=== PATIENT | male | born 1940 | race Caucasian/White ===

== ENCOUNTER 2023-05-20 09:10 | Emergency (ER) | payer OTHER, SELFPAY ==
[2023-05-20] VITALS (17 sets, daily range): BP systolic 176–198; BP diastolic 78–111; PULSE 77–87; RESP 20–26; TEMP 36.5; O2SAT 93–94
--- NOTE | 2023-05-20 09:00 | RT.EKG_ITS ---
APPROVED REPORT Exam: Resting ECG Reason for Exam: sob Patient Location: E HR:77 bpm ECG Measurements Heart Rate 77 AXIS MS 162 P 72 QRSd 104 QRS 57 QT 416 T 70 QTc 471 Conclusion Sinus rhythm...normal P axis, V-rate 60- 99 Left ventricular hypertrophy...multiple voltage criteria Nonspecific T abnormalities, lateral leads...T <-0.10mV, I aVL V5 V6
[2023-05-20 09:34] LABS: Source Nasal/Nares
[2023-05-20 09:47] LABS: Abs Immature Grans 0.06 10^3/uL (0.0-0.06); Absolute Eosinophil Count 0.65 10^3/uL (0.0-0.7); Absolute Monocyte Count 0.69 10^3/uL (0.1-0.8); Absolute Neutrophil Count 8.24 10^3/uL (1.2-6.7); Basophils % 0.6; HCT 28.9 % (40.0-50.0); HGB 9.3 g/dL (13.5-17.5); Immature Grans % 0.6; Lymphocytes % 10.2; MCH 30.8 pg (27.0-33.0); MCHC 32.2 % (32.0-36.0); MCV 96 fL (80-95); MPV 12.2 fL (8.0-11.0); Monocytes % 6.4; Neutrophils % 76.2; Platelet Count 137 10^3/uL (130-400); RBC 3.02 10^6/uL (4.36-5.78); RDW 17.3 % (11.8-14.1); RDW-SD 60.3 fL; WBC 10.81 10^3/uL (4.4-10.8)
[2023-05-20 09:51] LABS: Absolute Basophil Count 0.06 10^3/uL (0.0-0.2)
[2023-05-20 09:57] LABS: Anion Gap 6.6 mmol/L (3-11); BUN 55 mg/dL (7-18); CO2 28.4 mmol/L (21.0-32.0); Chloride 100 mmol/L (98-107); Estimated GFR 6.47 (mL/min/1.73m2); Glucose 101 mg/dL (74-106); Potassium 4.9 mmol/L (3.5-5.1); Sodium 135 mmol/L (136-145)
[2023-05-20 09:58] LABS: CREATININE 7.8 mg/dL (0.70-1.30)
[2023-05-20 10:11] LABS: COVID-19 PCR POSITIVE (Negative)
--- NOTE | 2023-05-20 10:59 | ED.GENADUL_ITS ---
Discharge Plan Disposition Patient Disposition: Home Condition: Stable Discharge Details Clinical Impression: COVID-19 Primary Care Provider: Unknown,Unknown ED Provider: Ajay Cerna [place] Meds and New Rx's Prescriptions: New molnupiravir 200 mg capsule 800 mg PO Q12H 5 Days Qty: 40 0RF Continued allopurinol 100 mg tablet 100 mg PO DAILY aspirin [Adult Low Dose Aspirin] 81 mg tablet,delayed release (DR/EC) 81 mg PO DAILY atorvastatin 40 mg tablet 40 mg PO DAILY calcitriol 0.5 mcg capsule 0.5 mcg PO Q OTHER DAY Patient Comments: Given Saturday, Saturday, Saturday calcium carbonate 500 mg calcium (1,250 mg) tablet 500 mg PO QID clopidogrel 75 mg tablet 75 mg PO DAILY bisacodyl [Dulcolax (bisacodyl)] 10 mg suppository 10 mg TN ONCE PRN finasteride 5 mg tablet 5 mg PO DAILY ipratropium-albuterol 0.5 mg-3 mg(2.5 mg base)/3 mL solution for nebulization 3 ml inhalation Q4H PRN isosorbide mononitrate 120 mg tablet extended release 24 hr 120 mg PO DAILY metoprolol tartrate 25 mg tablet 25 mg PO BID midodrine 5 mg tablet 5 mg PO TID Patient Comments: Not taking- d/c 05/18/23 CT Rx Instructions: do not give last dose of day after 6PM or within 4 hrs of bedtime ondansetron 4 mg tablet,disintegrating 4 mg PO BID-TID PRN prednisone 20 mg tablet 20 mg PO DAILY Rx Instructions: days 11-21 of therapy pantoprazole [Protonix] 40 mg tablet,delayed release (DR/EC) 40 mg PO DAILY albuterol sulfate [Proventil HFA] 90 mcg/actuation HFA aerosol inhaler 2 inh inhalation Q4H PRN quetiapine 25 mg tablet 25 mg PO QHS sevelamer carbonate [Renvela] 2.4 gram powder in packet 2.4 g PO TID Rx Instructions: must administer with a meal/food sennosides-docusate sodium [2-in-1 Laxative] 8.6-50 mg tablet 1 tab-cap PO BID sertraline 25 mg tablet 25 mg PO DAILY tamsulosin 0.4 mg capsule 0.4 mg PO DAILY tiotropium bromide 18 mcg capsule, w/inhalation device 1 cap inhalation DAILY Rx Instructions: puncture 1 cap using device; one dose = 2 inhalations Gutierrez Ellipta 200-62.5-25 mcg blister with device 1 inh inhalation DAILY Discharge Instructions Instructions: COVID-19 (Coronavirus Disease 2019) (ED) Additional Instructions: Please follow-up with your primary care physician. Continue molnupiravir as prescribed. Please follow-up for dialysis as scheduled. Return to the ER immediately for any worsening or new concerning symptoms. Discharge Data Discharge Date/Time-TO BE ENTERED AT DEPARTURE: 05/20/23 12:33 Medical Decision Making 82-year-old male with multiple medical problems here having tested positive for COVID-19 in rehab facility. He does have cough. Patient saturating 93% off oxygen. Patient is typically on 2 L of oxygen daily. Oxygen applied and patient saturating in the upper 90s. No respiratory distress. No indication for admission. Plan to discharge with outpatient follow-up. I did speak with the pharmacist about antiviral choice and plan for Molnupiravir opposed to Paxlovid given kidney function and interaction with multiple other medications. Plan discussed with patient who is in agreement. Usual customary discharge instructions were reviewed. Lab Data Lab results reviewed: Yes I reviewed the patient's lab results. Labs: Laboratory Tests Range/Units 05/20/23 09:28 WBC (4.4-10.8) 10^3/uL 10.81 H RBC (4.36-5.78) 10^6/uL 3.02 L Hgb (13.5-17.5) g/dL 9.3 L Hct (40.0-50.0) % 28.9 L MCV (80-95) fL 96 H MCH (27.0-33.0) pg 30.8 MCHC (32.0-36.0) % 32.2 RDW (11.8-14.1) % 17.3 H Plt Count (130-400) 10^3/uL 137 MPV (8.0-11.0) fL 12.2 H Immature Gran % 0.6 Neutrophils % 76.2 Lymphocytes % 10.2 Monocytes % 6.4 Eosinophils % 6.0 Basophils % 0.6 Nucleated RBC % (0.0-0.3) % 0.0 Absolute Neutrophils (1.2-6.7) 10^3/uL 8.24 H Absolute Lymphocytes (1.2-3.4) 10^3/uL 1.10 L Absolute Monocytes (0.1-0.8) 10^3/uL 0.69 Absolute Eosinophils (0.0-0.7) 10^3/uL 0.65 Absolute Basophils (0.0-0.2) 10^3/uL 0.06 Sodium (136-145) mmol/L 135 L Potassium (3.5-5.1) mmol/L 4.9 Chloride (98-107) mmol/L 100 Carbon Dioxide (21.0-32.0) mmol/L 28.4 Anion Gap (3-11) mmol/L 6.6 BUN (7-18) mg/dL 55 H Creatinine (0.70-1.30) mg/dL 7.8 H* Est GFR (CKD-EPI 2020) (mL/min/1.73m2) 6.47 Glucose (74-106) mg/dL 101 Calcium (8.5-10.1) mg/dL 9.0 COVID-19 Source Nasal/Nares SARS-CoV-2 (PCR) (Negative) POSITIVE A* HPI General Mode of arrival: EMS . Date/Time Provider Initiated Documentation: 05/20/23 09:23 . Limitations to Documentation: no limitations . Information obtained by: patient and RN/MD . HPI Narrative: 82-year-old male with multiple medical problems here having tested positive for COVID-19 in rehab facility. Patient does note cough and some shortness of breath. He does have associated fatigue. Related Data Home Medications Medication Instructions Recorded Confirmed albuterol sulfate 90 mcg/actuation 2 inh inhalation Q4H PRN 05/20/23 05/20/23 aerosol inhaler (Proventil HFA) allopurinol 100 mg tablet 100 mg PO DAILY 05/20/23 05/20/23 aspirin 81 mg tablet,delayed 81 mg PO DAILY 05/20/23 05/20/23 release (Adult Low Dose Aspirin) atorvastatin 40 mg tablet 40 mg PO DAILY 05/20/23 05/20/23 bisacodyl 10 mg rectal suppository 10 mg TN ONCE PRN 05/20/23 05/20/23 (Dulcolax (bisacodyl)) calcitriol 0.5 mcg PO Q OTHER DAY 05/20/23 05/20/23 calcium carbonate 500 mg calcium 500 mg PO QID 05/20/23 05/20/23 (1,250 mg) tablet clopidogrel 75 mg tablet 75 mg PO DAILY 05/20/23 05/20/23 finasteride 5 mg tablet 5 mg PO DAILY 05/20/23 05/20/23 fluticasone fur. 200 mcg-umeclid 1 inh inhalation DAILY 05/20/23 05/20/23 62.5 mcg-vilant 25 mcg inhalat.powder (Trelegy Ellipta) ipratropium 0.5 mg-albuterol 3 mg 3 ml inhalation Q4H PRN 05/20/23 05/20/23 (2.5 mg base)/3 mL nebulization soln isosorbide mononitrate 120 mg 120 mg PO DAILY 05/20/23 05/20/23 tablet,extended release 24 hr metoprolol tartrate 25 mg tablet 25 mg PO BID 05/20/23 05/20/23 midodrine 5 mg tablet 5 mg PO TID 05/20/23 05/20/23 molnupiravir 200 mg capsule (EUA) 800 mg (4 x 200 mg) PO Q12H 5 days 05/20/23 #40 caps ondansetron 4 mg disintegrating 4 mg PO BID-TID PRN 05/20/23 05/20/23 tablet pantoprazole 40 mg tablet,delayed 40 mg PO DAILY 05/20/23 05/20/23 release (Protonix) prednisone 20 mg tablet 20 mg PO DAILY 05/20/23 05/20/23 quetiapine 25 mg tablet 25 mg PO QHS 05/20/23 05/20/23 sennosides 8.6 mg-docusate sodium 1 tab-cap PO BID 05/20/23 05/20/23 50 mg tablet (2-in-1 Laxative) sertraline 25 mg tablet 25 mg PO DAILY 05/20/23 05/20/23 sevelamer carbonate 2.4 gram oral 2.4 g PO TID 05/20/23 05/20/23 powder packet (Renvela) tamsulosin 0.4 mg capsule 0.4 mg PO DAILY 05/20/23 05/20/23 tiotropium bromide 18 mcg capsule 1 cap inhalation DAILY 05/20/23 05/20/23 with inhalation device Previous Rx's Medication Instructions Recorded molnupiravir 200 mg capsule (EUA) 800 mg (4 x 200 mg) PO Q12H 5 days 05/20/23 #40 caps Allergies Allergy/AdvReac Type Severity Reaction Status Date / Time heparin Allergy Unknown Unverified 05/20/23 09:33 General Stated Complaint: SOB ISIAH: 3 Review of Systems All systems reviewed & are unremarkable except as noted in HPI and below Constitutional Constitutional: Reports fatigue and Denies fever(s) Cardiovascular Cardiovascular: Denies chest pain and Reports dyspnea Respiratory Respiratory: Reports cough and Reports dyspnea Endocrine Endocrine: Reports fatigue PFSH All Active Problems COVID-19 (Acute) Social History Smoking/Tobacco Use Status: Current-Occasional Smoking risk assessment performed?: Yes Alcohol Intake: never Drug use: Never Substance use type: does not use Housing: fpc Do you feel safe at home: Yes Do you feel safe in your relationship?: Yes Exam Const General: cooperative and no acute distress HENMT Mouth: moist mucous membranes Eyes Conjunctivae: normal conjunctivae Sclera: normal sclerae Resp Auscultation: no rales and rhonchi Cardio Rate: regular rate and not tachycardic Rhythm: regular rhythm GI Palpation: soft, not firm, no guarding, no masses, not rigid and nontender Neuro General: patient alert, patient awake and tone normal Extrem General: no edema Psych Appearance: grossly normal Mental Status: mental status grossly normal Course Vital Signs Vital signs: Vital Signs Temperature 36.5 C 05/20/23 09:09 Pulse 84 05/20/23 09:09 Respiratory Rate 20 05/20/23 09:09 Blood Pressure 198/94 H 05/20/23 09:09 Pulse Oximetry 93 05/20/23 09:09 Temperature 36.5 C 05/20/23 10:44 Temperature Source Oral 05/20/23 10:44 Pulse 81 05/20/23 10:38 Pulse 82 05/20/23 10:40 Respiratory Rate 25 H 05/20/23 10:40 Respiratory Effort Short of Breath 05/20/23 09:12 Respiratory Depth Normal 05/20/23 09:12 Respiratory Pattern Normal 05/20/23 09:12 Blood Pressure 177/78 H 05/20/23 10:38 Blood Pressure Mean 112 05/20/23 10:38 Blood Pressure Position Sitting 05/20/23 09:15 Pulse Oximetry 94 05/20/23 09:15 Oxygen Delivery Method Room Air 05/20/23 09:15 Oxygen Flow Rate 0 05/20/23 09:09 Pain Level 0 05/20/23 09:15 Lab/Test Results Lab/Test Results: Laboratory Tests Range/Units 05/20/23 09:28 WBC (4.4-10.8) 10^3/uL 10.81 H RBC (4.36-5.78) 10^6/uL 3.02 L Hgb (13.5-17.5) g/dL 9.3 L Hct (40.0-50.0) % 28.9 L MCV (80-95) fL 96 H MCH (27.0-33.0) pg 30.8 MCHC (32.0-36.0) % 32.2 RDW (11.8-14.1) % 17.3 H Plt Count (130-400) 10^3/uL 137 MPV (8.0-11.0) fL 12.2 H Immature Gran % 0.6 Neutrophils % 76.2 Lymphocytes % 10.2 Monocytes % 6.4 Eosinophils % 6.0 Basophils % 0.6 Nucleated RBC % (0.0-0.3) % 0.0 Absolute Neutrophils (1.2-6.7) 10^3/uL 8.24 H Absolute Lymphocytes (1.2-3.4) 10^3/uL 1.10 L Absolute Monocytes (0.1-0.8) 10^3/uL 0.69 Absolute Eosinophils (0.0-0.7) 10^3/uL 0.65 Absolute Basophils (0.0-0.2) 10^3/uL 0.06 Sodium (136-145) mmol/L 135 L Potassium (3.5-5.1) mmol/L 4.9 Chloride (98-107) mmol/L 100 Carbon Dioxide (21.0-32.0) mmol/L 28.4 Anion Gap (3-11) mmol/L 6.6 BUN (7-18) mg/dL 55 H Creatinine (0.70-1.30) mg/dL 7.8 H* Est GFR (CKD-EPI 2021) (mL/min/1.73m2) 6.47 Glucose (74-106) mg/dL 101 Calcium (8.5-10.1) mg/dL 9.0 COVID-19 Source Nasal/Nares SARS-CoV-2 (PCR) (Negative) POSITIVE A*
--- NOTE | 2023-05-20 12:26 | NUR.NOTE ---
Nursing Note: This RN called report to [facility]. Pt stable and in no sins of distress at d/c.
== END 2023-05-20 12:33 | disposition home or self-care (01) ==
LOC: ER 14:41
PROVIDERS: Emergency Provider Student in an Organized Health Care Education/Training Program
DX: U07.1 COVID-19 (principal); Z20.822 Contact with and (suspected) exposure to COVID-19; Z99.81 Dependence on supplemental oxygen; Z79.02 Long term (current) use of antithrombotics/antiplatelets; Z79.82 Long term (current) use of aspirin; F17.210 Nicotine dependence, cigarettes, uncomplicated
CPT/HCPCS: 36415; 80048; 87635; 93005; 99283; 85025; 93010

== ENCOUNTER 2023-05-22 18:50 | Outpatient (REF) | payer OTHER, SELFPAY ==
[2023-05-22 19:04] LABS: Abs Immature Grans 0.05 10^3/uL (0.0-0.06); Absolute Basophil Count 0.03 10^3/uL (0.0-0.2); Absolute Eosinophil Count 0.01 10^3/uL (0.0-0.7); Absolute Lymphocyte Count 0.91 10^3/uL (1.2-3.4); Absolute Monocyte Count 0.41 10^3/uL (0.1-0.8); Basophils % 0.4; Eosinophils % 0.1; HCT 29.2 % (40.0-50.0); HGB 9.3 g/dL (13.5-17.5); Immature Grans % 0.7; Lymphocytes % 12.3; MCH 30.6 pg (27.0-33.0); MCHC 31.8 % (32.0-36.0); MCV 96 fL (80-95); MPV 12.4 fL (8.0-11.0); Monocytes % 5.5; Platelet Count 182 10^3/uL (130-400); RBC 3.04 10^6/uL (4.36-5.78); RDW 17.5 % (11.8-14.1); RDW-SD 60.6 fL; WBC 7.41 10^3/uL (4.4-10.8)
[2023-05-22 19:23] LABS: ALT 19 U/L (16-63); AST 21 U/L (15-37); Albumin 2.8 g/dL (3.4-5.0); Alkaline Phosphatase 63 U/L (46-116); Anion Gap 5.6 mmol/L (3-11); BUN 23 mg/dL (7-18); Bilirubin, Total 0.5 mg/dL (0.2-1.0); CO2 31.4 mmol/L (21.0-32.0); CREATININE 3.5 mg/dL (0.70-1.30); Calcium 8.4 mg/dL (8.5-10.1); Chloride 101 mmol/L (98-107); Estimated GFR 16.92 (mL/min/1.73m2); Glucose 100 mg/dL (74-106); Potassium 4.3 mmol/L (3.5-5.1); Sodium 138 mmol/L (136-145)
== END 2023-05-22 18:51 | disposition home or self-care (01) ==
LOC: LBN 18:50
PROVIDERS: Visit Provider Nurse Practitioner Adult Health
DX: A41.9 Sepsis, unspecified organism (principal); I50.43 Acute on chronic combined systolic (congestive) and diastolic (congestive) heart failure
CPT/HCPCS: 80053; 85025

== ENCOUNTER 2023-06-17 08:24 | Emergency (ER) | payer OTHER, SELFPAY ==
[2023-06-17] VITALS (40 sets, daily range): BP systolic 150–195; BP diastolic 61–110; PULSE 54–86; RESP 8–31; TEMP 36.2; O2SAT 87–100
--- NOTE | 2023-06-17 08:15 | RT.EKG_ITS ---
APPROVED REPORT Exam: Resting ECG Reason for Exam: chest pain, high b/p Patient Location: E HR:76 bpm ECG Measurements Heart Rate [address] 174 P -44 QRSd 108 QRS 23 QT 377 T 249 QTc 425 Conclusion Sinus rhythm...normal P axis, V-rate 60- 99 Ventricular premature complex...V complex w/ short R-R interval Aberrant conduction of SV complex(es)...aberrant shape, CT 80-220 Left ventricular hypertrophy...multiple voltage criteria Repol abnrm suggests ischemia, diffuse leads...ST-T neg, ant/lat/inf ECG appears to show normal sinus rhythm at a rate of 76 with normal axis and interventricular conduc tion delay. LVH based on voltage criteria in V5 and V6.
--- NOTE | 2023-06-17 08:24 | W.ED.GENAD ---
Discharge Plan Disposition Patient Disposition: Transfer-Acute Inpatient Care Specific Acute Inpt Facility: [facility] Discharge Details Clinical Impression: Acute clinical systolic heart failure Primary Care Provider: Unknown,Unknown ED Provider: Javid Desai [place] Meds and New Rx's Prescriptions: No Action allopurinol 100 mg tablet 100 mg PO DAILY aspirin [Adult Low Dose Aspirin] 81 mg tablet,delayed release (DR/EC) 81 mg PO DAILY atorvastatin 40 mg tablet 40 mg PO DAILY calcitriol 0.5 mcg capsule 0.5 mcg PO Q OTHER DAY Patient Comments: Given Saturday, Saturday, Saturday calcium carbonate 500 mg calcium (1,250 mg) tablet 500 mg PO QID clopidogrel 75 mg tablet 75 mg PO DAILY bisacodyl [Dulcolax (bisacodyl)] 10 mg suppository 10 mg TX ONCE PRN finasteride 5 mg tablet 5 mg PO DAILY ipratropium-albuterol 0.5 mg-3 mg(2.5 mg base)/3 mL solution for nebulization 3 ml inhalation Q4H PRN isosorbide mononitrate 120 mg tablet extended release 24 hr 120 mg PO DAILY metoprolol tartrate 25 mg tablet 25 mg PO BID ondansetron 4 mg tablet,disintegrating 4 mg PO BID-TID PRN prednisone 20 mg tablet 20 mg PO DAILY Rx Instructions: days 11-21 of therapy pantoprazole [Protonix] 40 mg tablet,delayed release (DR/EC) 40 mg PO DAILY albuterol sulfate [Proventil HFA] 90 mcg/actuation HFA aerosol inhaler 2 inh inhalation Q4H PRN sevelamer carbonate [Renvela] 2.4 gram powder in packet 2.4 g PO TID Rx Instructions: must administer with a meal/food sennosides-docusate sodium [2-in-1 Laxative] 8.6-50 mg tablet 1 tab-cap PO BID sertraline 25 mg tablet 25 mg PO DAILY tamsulosin 0.4 mg capsule 0.4 mg PO DAILY tiotropium bromide 18 mcg capsule, w/inhalation device 1 cap inhalation DAILY Rx Instructions: puncture 1 cap using device; one dose = 2 inhalations Trelegy Ellipta 200-62.5-25 mcg blister with device 1 inh inhalation DAILY nicotine [Nicoderm CQ] 14 mg/24 hr patch 24 hour 1 patch transdermal DAILY nitroglycerin 0.4 mg tablet, sublingual 0.4 mg sublingual Q5-15M PRN Rx Instructions: do not exceed 3 doses per episode HPI General Date/Time Provider Initiated Documentation: 06/17/23 08:37. HPI Narrative: [facility] This is a tachypneic but not tachycardic and afebrile 82-year-old male with shortness of breath concerning for possible COPD exacerbation versus acute heart failure versus volume overload from end-stage renal disease for which patient will undergo chest x-ray and bedside ultrasound. No fevers and given lack of tachycardia my suspicion was lower for sepsis so I did not order blood cultures nor a lactate. No pain out of proportion to suggest necrotizing soft tissue infection. Patient does continue to make urine but denies dysuria and frequency so I did not send a urinalysis. Pneumonia is also on the differential however given no fevers will defer empiric treatment. No hypotension no hypoxia so my suspicion is low for PE. I considered aortic dissection given history of abdominal aortic aneurysm however patient has no tearing quality aortic dissection. Patient is not hypotensive to suggest tamponade. Equal breath sounds so my suspicion is low for pneumothorax. No history of emesis to suggest infectious esophageal rupture. Right chest wall dialysis catheter with no signs of infection. 9:04 AM Limited bedside ultrasound showing bilateral B-lines with moderate squeeze concerning for the possibility of acute heart failure with reduced ejection fraction. We will wait for proBNP but in the absence of any lower extremity pitting edema and in the absence of any weight gain my suspicion is that the patient's B-lines are the results of his need for dialysis this morning rather than new onset heart failure particularly given his cough. He adds that he has recently been treated for community-acquired pneumonia. He does not appear to be on a diuretic. Nonetheless, we will trial a low-dose of furosemide at 20 mg IV. 9:08 AM Venous blood gas showing hypercarbia and acidemia with a pH of 7.23 and a PCO2 of 72 mmHg. We will contact respiratory for trial of BiPAP. Given the patient will require hospitalization will order 2 sets of blood cultures and treat empirically with ceftriaxone and vancomycin. We will also cover with methylprednisolone in the event that there is a component of COPD. 9:15 AM CBC showing leukocytosis mild macrocytic anemia improved compared to prior. Mild thrombocytopenia new compared to prior. Chest x-ray read as concerning for CHF. I considered heparinizing the patient however he reported an allergy. He reported that he could not recall what his allergy was but he reports that he needed to be revived at [facility] after receiving heparin. [facility] E[place] indicates anaphylaxis to heparin so will defer heparinization at this point time. 9:20 AM Troponin elevated at 1686 ng/L. No prior for comparison. Patient metabolic panel showing worsened renal function similar to prior. Elevated BUN. Normal potassium. proBNP elevated at 30,443 pg/mL. Normal magnesium. Will provide additional aspirin for total of 324 mg today. 9:44 AM Unfortunately both [facility] & [facility] have no capacity. Patient has received care in the past [facility]. Patient we will attempt to transfer there. 9:52 AM [facility] is unfortunately also full. We will try [facility]. Patient's COVID test has not yet resulted. He is pulling tidal volumes and 500 range. His COVID test was reportedly positive on 05/20/2023. 10:10 AM COVID influenza and RSV all negative. 10:45 AM I spoke with Dr. Sosa from the emergency department at [facility]. He agreed to accept the patient assuming that nephrology will be able to dialyze the patient today. He advised trial of nitroglycerin which I ordered orally along with additional furosemide at 60 mg as patient has not yet urinated. 11 AM I spoke with patient's daughter, Shaneka Mcgraw, to provide her with an update: [phone]. Patient has been accepted to [facility] by Dr. Sosa. 11:50 AM Repeat venous blood gas showing mildly improved acidemia with a venous pH of 7.26. Mildly improved hypercarbia with PCO2 of 64 mmHg. 12 PM Troponin improved down to 1391. Paramedics here to transport patient to [facility]. Blood pressure improved to 150/110. Patient has not yet made urine. [ ] Chronic conditions affecting the care of the patient: End-stage renal disease History obtained from an outside historian: Paramedics External record review: [facility] EMR Diagnostic interpretations performed by me: Per my independent interpretation chest x-ray shows: Increased interstitial markings bilaterally with concern for right-sided infiltrate. Per my independent interpretation EKG shows: Difficult ECG to interpret secondary to significant artifact. ECG appears to show normal sinus rhythm at a rate of 76 with normal axis and interventricular conduction delay. LVH based on voltage criteria in V5 and V6. Repeat ECG showing normal sinus rhythm at a rate of 63. Normal axis. LVH. No ST segment abnormalities. Compared to prior dated July 2022 in the [facility] system ECG feels similar. Medications: Furosemide nitroglycerin Social determinants of health affecting disposition: N/A Management discussed with: ED at [facility] Treatment/interventions considered: Heparinization but deferred given anaphylaxis Response to therapies provided: Markedly improved work of breathing on rescue BiPAP HPI This is an 82-year-old male arrived to the emergency department via paramedics in the setting of right-sided chest pain that radiates to his right with difficulty breathing. Patient is due for dialysis this morning. Patient reports that he has taken his morning home medications. He was feeling well last night. He fell several weeks ago has persistent bruising to his chest. He continues to make urine. He is not a smoker. He is on 3 L of chronic oxygen at baseline. He has had no unintentional weight gain but does endorse weight loss. 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 He has not been nauseous nor vomiting. Chart review indicates that he did receive a cardiac stent in 2007. He has not had any abdominal pain. Exam General: Chronically ill-appearing in no acute distress speaking in complete sentences. Head: Normocephalic, atraumatic. Eye: Extraocular eye movements intact. No conjunctival injection. No scleral icterus. Ear, nose, mouth, throat: Grossly normal inspection. Normal voice, handling secretions normally. Neck: Trachea midline. Cardiovascular: Well-perfused distal extremities. Systolic ejection murmur. Regular rate. Respiratory: Nonlabored respiration. Quiet tachypnea. Decreased breath sounds bibasilar reassess. Mild abdominal breathing. Gastrointestinal: Nondistended abdomen. Soft nontender. Musculoskeletal: No significant lower extremity pitting edema. Moving all 4 extremities spontaneously. Skin: Normal for age and race, grossly normal temperature and turgor. No acute rash. Neurologic: Alert and appropriate, no apparent acute deficits. Psychiatric: Mood and manner are appropriate. Grooming and personal hygiene are appropriate. Related Data Home Medications Medication Instructions Recorded Confirmed albuterol sulfate 90 mcg/actuation 2 inh inhalation Q4H PRN 05/20/23 06/17/23 aerosol inhaler (Proventil HFA) allopurinol 100 mg tablet 100 mg PO DAILY 05/20/23 06/17/23 aspirin 81 mg tablet,delayed 81 mg PO DAILY 05/20/23 06/17/23 release (Adult Low Dose Aspirin) atorvastatin 40 mg tablet 40 mg PO DAILY 05/20/23 06/17/23 bisacodyl 10 mg rectal suppository 10 mg TX ONCE PRN 05/20/23 06/17/23 (Dulcolax (bisacodyl)) calcitriol 0.5 mcg PO Q OTHER DAY 05/20/23 06/17/23 calcium carbonate 500 mg calcium 500 mg PO QID 05/20/23 06/17/23 (1,250 mg) tablet clopidogrel 75 mg tablet 75 mg PO DAILY 05/20/23 06/17/23 finasteride 5 mg tablet 5 mg PO DAILY 05/20/23 06/17/23 fluticasone fur. 200 mcg-umeclid 1 inh inhalation DAILY 05/20/23 06/17/23 62.5 mcg-vilant 25 mcg inhalat.powder (Trelegy Ellipta) ipratropium 0.5 mg-albuterol 3 mg 3 ml inhalation Q4H PRN 05/20/23 06/17/23 (2.5 mg base)/3 mL nebulization soln isosorbide mononitrate 120 mg 120 mg PO DAILY 05/20/23 06/17/23 tablet,extended release 24 hr metoprolol tartrate 25 mg tablet 25 mg PO BID 05/20/23 06/17/23 ondansetron 4 mg disintegrating 4 mg PO BID-TID PRN 05/20/23 06/17/23 tablet pantoprazole 40 mg tablet,delayed 40 mg PO DAILY 05/20/23 06/17/23 release (Protonix) prednisone 20 mg tablet 20 mg PO DAILY 05/20/23 06/17/23 sennosides 8.6 mg-docusate sodium 1 tab-cap PO BID 05/20/23 06/17/23 50 mg tablet (2-in-1 Laxative) sertraline 25 mg tablet 25 mg PO DAILY 05/20/23 06/17/23 sevelamer carbonate 2.4 gram oral 2.4 g PO TID 05/20/23 06/17/23 powder packet (Renvela) tamsulosin 0.4 mg capsule 0.4 mg PO DAILY 05/20/23 06/17/23 tiotropium bromide 18 mcg capsule 1 cap inhalation DAILY 05/20/23 06/17/23 with inhalation device nicotine 14 mg/24 hr daily 1 patch transdermal DAILY 06/17/23 06/17/23 transdermal patch (Nicoderm CQ) nitroglycerin 0.4 mg sublingual 0.4 mg sublingual Q5-15M PRN 06/17/23 06/17/23 tablet Allergies Allergy/AdvReac Type Severity Reaction Status Date / Time heparin Allergy Unknown Unverified 06/17/23 09:00 General ISIAH: 3 PFSH All Active Problems (Updated 06/17/23 @ 12:23 by Javid Desai MD) Acute clinical systolic heart failure (Acute) COVID-19 (Acute) Social History Smoking/Tobacco Use Status: Current-Occasional Smoking risk assessment performed?: Yes Alcohol Intake: never Drug use: Never Substance use type: does not use Housing: [facility] Do you feel safe at home: Yes Do you feel safe in your relationship?: Yes Additional Social history: resident at [facility] Critical Care Time Critical Care Time Critical Care Time: Yes Total Critical Care Time: 45 Attestation: Acute on chronic respiratory failure hypoxia hypercarbia POCUS Exam (ED) Limited Cardiac Exam DATE OF EXAM: 06/17/23 TIME OF EXAM: 09:03 PROVIDER THAT PERFORMED THE STUDY: Javid Desai IS THIS A REPEAT EXAM DURING THIS ENCOUNTER: no REASON FOR EXAM: Chest pain VISUALIZED STRUCTURES: Four Chambers, Left ventricle and LVOT VIEW OBTAINED: Apical 4-Chamber, Parasternal long-axis, Subxiphoid and Other (Lung windows) PERTINENT FINDINGS/IMPRESSION: LV dysfunction and Other (Moderate squeeze, aortic outflow track less than 4 cm, no significant pericardial effusion, RV less than LV. Bilateral B-lines.); No pericardial effusion INCIDENTAL FINDINGS: Moderate squeeze, aortic outflow track less than 4 cm, no significant pericardial effusion, RV less than LV. Bilateral B-lines. Did not tolerate exam
--- NOTE | 2023-06-17 08:30 | DI.RAD_ITS ---
Exam(s) XR PORTABLE CHEST AP EXAM: XR PORTABLE CHEST AP CLINICAL HISTORY: Shortness of breath TECHNIQUE: 2D digital imaging was performed. COMPARISON: No exams were available for comparison FINDINGS: LUNGS: Tiny bilateral pleural effusions. Vascular prominence and increased interstitial markings danielle aterally greater at the lung bases, consistent with CHF. No visible focal infiltrate. HEART: Normal size. AORTA: Normal calcified and ectatic. TAVR. BONES: Unremarkable for age. Soft tissues: Central venous catheter present. IMPRESSION: Findings consistent with CHF. DATA REPOSITORY: RADIATION DOSE DELIVERED:
[2023-06-17 08:50] LABS: BE (Venous) 3 mmol/L (-2-3); HCO3 (Venous) 31 mmol/L (23-28); O2 Sat (Venous) 42 %; TCO2 (Venous) 29 mmol/L (24-29); pH (Venous) 7.23 (7.31-7.41); pO2 (Venous) 29 mmHg
[2023-06-17 08:51] LABS: Abs Immature Grans 0.22 10^3/uL (0.0-0.06); Absolute Monocyte Count 0.83 10^3/uL (0.1-0.8); Basophils % 0.6; Eosinophils % 2.8; HCT 36.7 % (40.0-50.0); HGB 11.4 g/dL (13.5-17.5); Immature Grans % 1.8; Lymphocytes % 15.7; MCH 31.4 pg (27.0-33.0); MCHC 31.1 % (32.0-36.0); MCV 101 fL (80-95); MPV 10.7 fL (8.0-11.0); Monocytes % 6.7; Neutrophils % 72.4; Platelet Count 122 10^3/uL (130-400); RBC 3.63 10^6/uL (4.36-5.78); RDW 21.1 % (11.8-14.1); RDW-SD 78.4 fL; WBC 12.32 10^3/uL (4.4-10.8)
[2023-06-17 08:52] LABS: Absolute Basophil Count 0.07 10^3/uL (0.0-0.2); Absolute Eosinophil Count 0.34 10^3/uL (0.0-0.7); Absolute Lymphocyte Count 1.93 10^3/uL (1.2-3.4); Absolute Neutrophil Count 8.92 10^3/uL (1.2-6.7); pCO2 (Venous) 72 mmHg (41-51)
[2023-06-17 09:13] LABS: Anisocytosis 2+; Diff Comment Diff Reviewed
--- NOTE | 2023-06-17 09:15 | RT.EKG_ITS ---
APPROVED REPORT Exam: Resting ECG Reason for Exam: sob Patient Location: E HR:63 bpm ECG Measurements Heart Rate 63 AXIS WI 194 P 78 QRSd 111 QRS 40 QT 463 T -64 QTc 476 Conclusion Sinus rhythm...normal P axis, V-rate 60- 99 Left ventricular hypertrophy...multiple voltage criteria Abnormal T, consider ischemia, diffuse leads...T <-0.20mV, ant/lat/inf Repeat ECG showing normal sinus rhythm at a rate of 63. Normal axis. LVH. No ST segment abnormalit ies. Compared to prior dated July 2022 in the [facility] [place] ECG feels similar.
[2023-06-17 09:19] LABS: Calcium 9.2 mg/dL (8.5-10.1); Chloride 101 mmol/L (98-107); Estimated GFR 6.57 (mL/min/1.73m2); Glucose 95 mg/dL (74-106); Magnesium 2.2 mg/dL (1.8-2.4); NT-proBNP 30443 pg/mL (<300); Sodium 139 mmol/L (136-145)
[2023-06-17 09:20] LABS: BUN 110 mg/dL (7-18); CREATININE 7.7 mg/dL (0.70-1.30); Troponin I 1686 ng/L (<or=60)
[2023-06-17] MEDS: Furosemide 20 MG/2 ML VIAL IVP (09:33)
[2023-06-17] MEDS: methylPREDNISolone SUCC 125 MG VIAL IVP (09:33)
[2023-06-17] MEDS: cefTRIAXone 2 GM/50 ML BAG IVPB (09:48)
[2023-06-17 10:06] LABS: COVID-19 PCR Negative (Negative); Influenza A PCR Negative (Negative); Influenza B PCR Negative (Negative); RSV PCR Negative (Negative)
[2023-06-17 10:07] LABS: Source Nasopharynx
[2023-06-17] MEDS: VANCOMYCIN/WATER (PEG) 1.5 GM/300 ML BAG IVPB (10:21)
[2023-06-17] MEDS: Furosemide 100 MG/10 ML VIAL 60 MG IVP (11:08)
--- NOTE | 2023-06-17 11:19 | NUR.NOTE ---
Nursing Note: Pt reports he is concerned about belongings he left behind on his bed at [facility]. Requesting a call to be made to them to request smith in pants pocket that was left on his bed. Contacted the rehab, spoke with business systems advisor Dorys who states she will take care of his belongings. Pt updated on the above.
[2023-06-17] MEDS: Aspirin 81 MG CHEW 243 MG CH (11:31)
[2023-06-17 11:39] LABS: BE (Venous) 2 mmol/L (-2-3); HCO3 (Venous) 29 mmol/L (23-28); O2 Sat (Venous) 43 %; TCO2 (Venous) 28 mmol/L (24-29); pH (Venous) 7.26 (7.31-7.41); pO2 (Venous) 29 mmHg
[2023-06-17 11:41] LABS: pCO2 (Venous) 64 mmHg (41-51)
[2023-06-17 12:00] LABS: Troponin I 1391 ng/L (<or=60)
== END 2023-06-17 12:04 | disposition short-term general hospital (02) ==
LOC: ER 12:18
PROVIDERS: Emergency Provider Emergency Medicine
DX: R06.02 Shortness of breath (principal); I13.2 Hypertensive heart and chronic kidney disease with heart failure and with stage 5 chronic kidney disease, or end stage renal disease; I50.21 Acute systolic (congestive) heart failure; N18.6 End stage renal disease; R94.31 Abnormal electrocardiogram [ECG] [EKG]; D72.829 Elevated white blood cell count, unspecified; Z79.82 Long term (current) use of aspirin; Z79.01 Long term (current) use of anticoagulants
CPT/HCPCS: 36415; 80048; 82805; 87040; 87637; 93005; 96365; 96368; 96375; 96376; 99285; 71045; 83735; 83880; 84484; 85025; 93010; J1940; J1941; J2930

== ENCOUNTER 2023-09-19 17:04 | Emergency (ER) | payer OTHER, SELFPAY ==
[2023-09-19] VITALS (36 sets, daily range): BP systolic 63–176; BP diastolic 38–128; PULSE 64–205; RESP 20–35; TEMP 39; O2SAT 92–94
--- NOTE | 2023-09-19 17:00 | DI.RAD_ITS ---
Exam(s) XR PORTABLE CHEST AP EXAM: XR PORTABLE CHEST AP CLINICAL HISTORY: sob. TECHNIQUE: 2D digital imaging was performed. COMPARISON: CR XR PORTABLE CHEST AP from 06/17/2023 FINDINGS: Single AP portable view. Distal tip of the left sided double lumen catheter is in the upper right atrium. Heart size is upper normal. Aortic valve TAVR again noted. Tortuous descending thoracic aorta again noted. Mediastinum not significantly widened. Lungs are clear. No infiltrates nor obvious pleural effusions. No evidence of pulmonary edema at this time. No pneumothorax. IMPRESSION: No acute pulmonary findings on this single AP portable view of the chest. DATA REPOSITORY: RADIATION DOSE DELIVERED:
--- NOTE | 2023-09-19 17:00 | RT.EKG_ITS ---
APPROVED REPORT Exam: Resting ECG Reason for Exam: sob Patient Location: E HR:97 bpm ECG Measurements Heart Rate 97 AXIS TX [id number] P [id number] QRSd 121 QRS 8 QT 345 T 235 QTc 468 Conclusion unreadable baseline
[2023-09-19 17:27] LABS: BE (Venous) 4 mmol/L (-2-3); HCO3 (Venous) 31 mmol/L (23-28); O2 Sat (Venous) 36 %; TCO2 (Venous) 30 mmol/L (24-29); pH (Venous) 7.27 (7.31-7.41); pO2 (Venous) 25 mmHg
[2023-09-19 17:29] LABS: pCO2 (Venous) 68 mmHg (41-51)
[2023-09-19] MEDS: CEFEPIME 1 GM in Normal Saline 50 ML IVPB (17:29)
[2023-09-19 17:30] LABS: Lactate 1.1 mmol/L (0.6-1.4)
[2023-09-19 17:32] LABS: Abs Immature Grans 0.09 10^3/uL (0.0-0.06); Absolute Basophil Count 0.07 10^3/uL (0.0-0.2); Absolute Eosinophil Count 0.19 10^3/uL (0.0-0.7); Absolute Lymphocyte Count 0.65 10^3/uL (1.2-3.4); Absolute Monocyte Count 0.84 10^3/uL (0.1-0.8); Absolute Neutrophil Count 8.14 10^3/uL (1.2-6.7); Basophils % 0.7; Eosinophils % 1.9; HGB 10.4 g/dL (13.5-17.5); Immature Grans % 0.9; Lymphocytes % 6.5; MCH 31.3 pg (27.0-33.0); MCHC 30.6 % (32.0-36.0); MCV 102 fL (80-95); MPV 10.7 fL (8.0-11.0); Monocytes % 8.4; Neutrophils % 81.6; Nucleated RBC 0.3 % (0.0-0.3); Platelet Count 214 10^3/uL (130-400); RBC 3.32 10^6/uL (4.36-5.78); RDW 17.8 % (11.8-14.1); RDW-SD 66.7 fL; WBC 9.98 10^3/uL (4.4-10.8)
[2023-09-19 17:39] LABS: INR 1.1 (0.9-1.1); Prothrombin Time 11.2 sec (9.1-11.1)
[2023-09-19 17:46] LABS: ALT 12 U/L (16-63); AST 17 U/L (15-37); Albumin 3.6 g/dL (3.4-5.0); Alkaline Phosphatase 92 U/L (46-116); BUN 78 mg/dL (7-18); Bilirubin, Total 0.6 mg/dL (0.2-1.0); Calcium 9.2 mg/dL (8.5-10.1); Chloride 95 mmol/L (98-107); Estimated GFR 4.16 (mL/min/1.73m2); Glucose 98 mg/dL (74-106); Potassium 5.6 mmol/L (3.5-5.1); Sodium 134 mmol/L (136-145); Total Protein 7.1 g/dL (6.4-8.2)
[2023-09-19 17:48] LABS: CREATININE 11.2 mg/dL (0.70-1.30)
[2023-09-19] MEDS: VANCOMYCIN/WATER (PEG) 1.5 GM/300 ML BAG IV (18:03)
[2023-09-19 18:08] LABS: Procalcitonin 0.8 ng/mL
[2023-09-19] MEDS: Furosemide 100 MG/10 ML VIAL 80 MG IVP (18:17)
[2023-09-19] MEDS: Insulin REGULAR-Human 100 UNITS/ML UNIT 10 UNITS IJ (18:28)
[2023-09-19] MEDS: Dextrose 50%-Water 25 GM/50 ML SYR IVP (18:28)
[2023-09-19 18:30] LABS: NT-proBNP 24934 pg/mL (<300)
[2023-09-19] MEDS: ACETAMINOPHEN 1,000 MG/100 ML BTL 400 MG (18:49)
--- NOTE | 2023-09-19 19:09 | W.ED.GENAD ---
Discharge Plan Disposition Patient Disposition: Transfer-Acute Inpatient Care Specific Acute Inpt Facility: [facility] Condition: Critical Discharge Details Chief Complaint: GenMedical Clinical Impression: Fever, Respiratory failure, End stage renal disease on dialysis, Acute hyperkalemia Primary Care Provider: Lucho Zhu ED Provider: Ramses Martel Home Meds and New Rx's Prescriptions: No Action allopurinol 100 mg tablet 100 mg PO DAILY aspirin [Adult Low Dose Aspirin] 81 mg tablet,delayed release (DR/EC) 81 mg PO DAILY atorvastatin 40 mg tablet 40 mg PO DAILY calcitriol 0.5 mcg capsule 0.5 mcg PO Q OTHER DAY Patient Comments: Given Saturday, Saturday, Saturday calcium carbonate 500 mg calcium (1,250 mg) tablet 500 mg PO QID clopidogrel 75 mg tablet 75 mg PO DAILY bisacodyl [Dulcolax (bisacodyl)] 10 mg suppository 10 mg CA ONCE PRN finasteride 5 mg tablet 5 mg PO DAILY ipratropium-albuterol 0.5 mg-3 mg(2.5 mg base)/3 mL solution for nebulization 3 ml inhalation Q4H PRN isosorbide mononitrate 120 mg tablet extended release 24 hr 120 mg PO DAILY metoprolol tartrate 25 mg tablet 25 mg PO BID ondansetron 4 mg tablet,disintegrating 4 mg PO BID-TID PRN prednisone 20 mg tablet 20 mg PO DAILY Rx Instructions: days 11-21 of therapy pantoprazole [Protonix] 40 mg tablet,delayed release (DR/EC) 40 mg PO DAILY albuterol sulfate [Proventil HFA] 90 mcg/actuation HFA aerosol inhaler 2 inh inhalation Q4H PRN sevelamer carbonate [Renvela] 2.4 gram powder in packet 2.4 g PO TID Rx Instructions: must administer with a meal/food sennosides-docusate sodium [2-in-1 Laxative] 8.6-50 mg tablet 1 tab-cap PO BID sertraline 25 mg tablet 25 mg PO DAILY tamsulosin 0.4 mg capsule 0.4 mg PO DAILY tiotropium bromide 18 mcg capsule, w/inhalation device 1 cap inhalation DAILY Rx Instructions: puncture 1 cap using device; one dose = 2 inhalations Trelegy Ellipta 200-62.5-25 mcg blister with device 1 inh inhalation DAILY nicotine [Nicoderm CQ] 14 mg/24 hr patch 24 hour 1 patch transdermal DAILY nitroglycerin 0.4 mg tablet, sublingual 0.4 mg sublingual Q5-15M PRN Rx Instructions: do not exceed 3 doses per episode metoprolol succinate 100 mg tablet extended release 24 hr 100 mg PO DAILY acetaminophen 325 mg capsule 650 mg PO QID PRN quetiapine 25 mg tablet 25 mg PO DAILY HPI General Date/Time Provider Initiated Documentation: 09/19/23 17:09. Limitations to Documentation: altered mental status and physical limitation. Information obtained by: EMS. HPI Narrative: 83-year-old gentleman with past medical history of COPD, CAD, end-stage renal disease on dialysis presents for evaluation of fever and shortness of breath. Patient arrives via EMS from the nursing facility. History is limited. They report that he chose not to go to dialysis yesterday. It is unknown why. Today they noted that he seemed very short of breath. His oxygen levels were low. He always wears 3 L of oxygen because of his COPD. Today they noted that he also had a fever. EMS reports that his oxygen saturations were in the 80s, they put him on 6 L which improved his O2 sat. Related Data Home Medications Medication Instructions Recorded Confirmed albuterol sulfate 90 mcg/actuation 2 inh inhalation Q4H PRN 05/20/23 09/19/23 aerosol inhaler (Proventil HFA) allopurinol 100 mg tablet 100 mg PO DAILY 05/20/23 09/19/23 aspirin 81 mg tablet,delayed 81 mg PO DAILY 05/20/23 09/19/23 release (Adult Low Dose Aspirin) atorvastatin 40 mg tablet 40 mg PO DAILY 05/20/23 09/19/23 bisacodyl 10 mg rectal suppository 10 mg CA ONCE PRN 05/20/23 09/19/23 (Dulcolax (bisacodyl)) calcitriol 0.5 mcg PO Q OTHER DAY 05/20/23 09/19/23 calcium carbonate 500 mg calcium 500 mg PO QID 05/20/23 09/19/23 (1,250 mg) tablet clopidogrel 75 mg tablet 75 mg PO DAILY 05/20/23 09/19/23 finasteride 5 mg tablet 5 mg PO DAILY 05/20/23 09/19/23 fluticasone fur. 200 mcg-umeclid 1 inh inhalation DAILY 05/20/23 09/19/23 62.5 mcg-vilant 25 mcg inhalat.powder (Trelegy Ellipta) ipratropium 0.5 mg-albuterol 3 mg 3 ml inhalation Q4H PRN 05/20/23 09/19/23 (2.5 mg base)/3 mL nebulization soln isosorbide mononitrate 120 mg 120 mg PO DAILY 05/20/23 09/19/23 tablet,extended release 24 hr metoprolol tartrate 25 mg tablet 25 mg PO BID 05/20/23 09/19/23 ondansetron 4 mg disintegrating 4 mg PO BID-TID PRN 05/20/23 09/19/23 tablet pantoprazole 40 mg tablet,delayed 40 mg PO DAILY 05/20/23 09/19/23 release (Protonix) prednisone 20 mg tablet 20 mg PO DAILY 05/20/23 09/19/23 sennosides 8.6 mg-docusate sodium 1 tab-cap PO BID 05/20/23 09/19/23 50 mg tablet (2-in-1 Laxative) sertraline 25 mg tablet 25 mg PO DAILY 05/20/23 09/19/23 sevelamer carbonate 2.4 gram oral 2.4 g PO TID 05/20/23 09/19/23 powder packet (Renvela) tamsulosin 0.4 mg capsule 0.4 mg PO DAILY 05/20/23 09/19/23 tiotropium bromide 18 mcg capsule 1 cap inhalation DAILY 05/20/23 09/19/23 with inhalation device nicotine 14 mg/24 hr daily 1 patch transdermal DAILY 06/17/23 09/19/23 transdermal patch (Nicoderm CQ) nitroglycerin 0.4 mg sublingual 0.4 mg sublingual Q5-15M PRN 06/17/23 09/19/23 tablet acetaminophen 325 mg capsule 650 mg PO QID PRN 09/19/23 09/19/23 metoprolol succinate 100 mg 100 mg PO DAILY 09/19/23 09/19/23 tablet,extended release 24 hr quetiapine 25 mg tablet 25 mg PO DAILY 09/19/23 09/19/23 Allergies Allergy/AdvReac Type Severity Reaction Status Date / Time heparin Allergy Unknown Other (See Unverified 09/19/23 17:12 Comment) General Stated Complaint: GenMedical ISIAH: 2 Exam Narrative Exam Narrative: Review of Systems: All systems reviewed & are unremarkable except as noted in HPI and below Well-developed, + distress NCAT PERRL, normal conjunctiva Tachycardic Tunneled catheter in left chest Respiratory distress, tachypnea, crackles bilaterally Nondistended abdomen Left upper extremity with AV fistula with palpable thrill Extremities w/o deformity, no cyanosis, no edema No rashes or lesions. no focal neurologic deficits, answers only simple questions Appropriate mood and affect Course Vital Signs Vital signs: Vital Signs Temperature 39.0 C H 09/19/23 17:05 Pulse 102 H 09/19/23 17:05 Respiratory Rate 30 H 09/19/23 17:05 Blood Pressure 175/102 H 09/19/23 17:05 Temperature 39.0 C H 09/19/23 18:38 Temperature Source Axillary 09/19/23 18:38 Pulse 106 H 09/19/23 19:01 Pulse 86 09/19/23 19:01 Respiratory Rate 29 H 09/19/23 19:01 Respiratory Effort Short of Breath, Nasal Flaring 09/19/23 18:38 Respiratory Depth Deep 09/19/23 18:38 Respiratory Pattern Tachypnea 09/19/23 18:38 Blood Pressure 112/59 L 09/19/23 19:01 Blood Pressure Mean 76 09/19/23 19:01 Blood Pressure Position Sitting 09/19/23 18:38 Pulse Oximetry 92 09/19/23 17:16 Fraction of Inspired Oxygen (FIO2) 35 09/19/23 17:16 Lab/Test Results Lab/Test Results: 09/19/23 18:05 Blood Blood Culture - Pending 09/19/23 17:55 Blood Blood Culture - Pending Laboratory Tests Range/Units 09/19/23 09/19/23 17:18 20:00 WBC (4.4-10.8) 10^3/uL 9.98 RBC (4.36-5.78) 10^6/uL 3.32 L Hgb (13.5-17.5) g/dL 10.4 L Hct (40.0-50.0) % 34.0 L MCV (80-95) fL 102 H MCH (27.0-33.0) pg 31.3 MCHC (32.0-36.0) % 30.6 L RDW (11.8-14.1) % 17.8 H Plt Count (130-400) 10^3/uL 214 MPV (8.0-11.0) fL 10.7 Immature Gran % 0.9 Neutrophils % 81.6 Lymphocytes % 6.5 Monocytes % 8.4 Eosinophils % 1.9 Basophils % 0.7 Nucleated RBC % (0.0-0.3) % 0.3 Absolute Neutrophils (1.2-6.7) 10^3/uL 8.14 H Absolute Lymphocytes (1.2-3.4) 10^3/uL 0.65 L Absolute Monocytes (0.1-0.8) 10^3/uL 0.84 H Absolute Eosinophils (0.0-0.7) 10^3/uL 0.19 Absolute Basophils (0.0-0.2) 10^3/uL 0.07 PT (9.1-11.1) sec 11.2 H INR (0.9-1.1) 1.1 VBG pH (7.31-7.41) 7.27 L VBG pCO2 (41-51) mmHg 68 H* VBG pO2 mmHg 25 VBG HCO3 (23-28) mmol/L 31 H VBG Total CO2 (24-29) mmol/L 30 H VBG O2 Saturation % 36 VBG Base Excess (-2-3) mmol/L 4 H VBG Lactate (0.6-1.4) mmol/L 1.1 Cancelled Sodium (136-145) mmol/L 134 L Potassium (3.5-5.1) mmol/L 5.6 H Chloride (98-107) mmol/L 95 L Carbon Dioxide (21.0-32.0) mmol/L 30.0 Anion Gap (3-11) mmol/L 9.0 BUN (7-18) mg/dL 78 H Creatinine (0.70-1.30) mg/dL 11.2 H* Est GFR (CKD-EPI 2020) (mL/min/1.73m2) 4.16 Glucose (74-106) mg/dL 98 Calcium (8.5-10.1) mg/dL 9.2 Total Bilirubin (0.2-1.0) mg/dL 0.6 AST (15-37) U/L 17 ALT (16-63) U/L 12 L Alkaline Phosphatase (46-116) U/L 92 NT-Pro-B Natriuret Pep (<300) pg/mL 24826 H Total Protein (6.4-8.2) g/dL 7.1 Albumin (3.4-5.0) g/dL 3.6 Procalcitonin ng/mL 0.8 Medical Decision Making Emergent evaluation of shortness of breath and fever. Initial differential includes sepsis, volume overload, COPD exacerbation, heart failure. Patient arrived in acute respiratory distress. History is significantly limited. Patient was transition from nasal cannula to BiPAP. BiPAP was very beneficial to the patient and his respiratory status improved. Respiratory rate decreased. I suspect the symptoms today are secondary to missing his dialysis session yesterday. Chest x-ray was obtained and reviewed by me. Chest x-ray shows cardiomegaly without large focal consolidation or large pleural effusion. Lab work reviewed. No significant anemia. White blood cell count is 9. Lactic acid is not elevated. Procalcitonin is elevated. Blood cultures have been obtained. Broad-spectrum antibiotics of cefepime and vancomycin have been given. Reviewed his VBG. pH 7.27, CO2 is 68 which does appear consistent with priors. Patient is likely well compensated from a COPD standpoint. CMP is concerning for slightly elevated potassium of 5.6. BUN and creatinine elevated consistent with longstanding renal disease. Although the potassium is only 5.6, I do not know when the patient will next be able to get dialyzed, so I will shift with insulin, glucose, Lasix proBNP significantly elevated at 24,000. COVID and flu testing [facility] obtained [facility] the [facility] and these are negative absent PCR testing here to confirm. Given the critical nature of this patient and RN availability of dialysis, I have contacted [facility] for emergent transfer. I discussed with the ICU fellow, patient has been accepted for transport. Emergent transportation has been arranged. Medical Records Medical records reviewed: Yes I reviewed the patient's medical records. Lab Data Lab results reviewed: Yes I reviewed the patient's lab results. ECG Data Attestation: I personally reviewed and interpreted this ECG (s) as follows: Interpretation: EKG with out a readable rhythm Quality:SDOH Health Related Social Needs: No Data to Display Critical Care Time Critical Care Time Critical Care Time: Yes Total Critical Care Time: 35 Attestation: CRITICAL CARE Upon my evaluation, this patient had a high probability of imminent or life-threatening deterioration due to end-stage renal disease, respiratory failure, sepsis which required my direct attention, intervention, and personal management. I have personally provided 35 minutes of critical care time exclusive of time spent on separately billable procedures. Time includes review of laboratory data, radiology results, discussion with consultants, and monitoring for potential decompensation. Interventions were performed as documented above [facility] All Active Problems (Updated 09/19/23 @ 19:19 by Ramses Martel MD) Acute hyperkalemia (Acute) End stage renal disease on dialysis (Acute) Respiratory failure (Acute) Fever (Acute) COVID-19 (Acute) Social History Smoking/Tobacco Use Status: Current-Occasional Smoking risk assessment performed?: Yes Alcohol Intake: never Drug use: Never Substance use type: does not use Housing: [facility] Do you feel safe at home: Yes Do you feel safe in your relationship?: Yes Additional Social history[facility]
[2023-09-19 19:14] LABS: COVID-19 PCR Negative (Negative); Influenza A PCR Negative (Negative); Influenza B PCR Negative (Negative); RSV PCR Negative (Negative)
[2023-09-19 19:30] LABS: Source Nasopharynx
[2023-09-19] MEDS: DEXTROSE 5%-WATER 250 ML (19:56)
--- NOTE | 2023-09-23 08:22 | NUR.NOTE ---
Accessed chart to determine orders for EKG and to determine whether or not one needs to be cancelled. Duplicate order cancelled. Nursing Note:
== END 2023-09-19 20:13 | disposition short-term general hospital (02) ==
PROVIDERS: Emergency Provider Emergency Medicine; PCP Family Medicine
DX: R05.9 Cough, unspecified (principal); J96.00 Acute respiratory failure, unspecified whether with hypoxia or hypercapnia; I12.0 Hypertensive chronic kidney disease with stage 5 chronic kidney disease or end stage renal disease; N18.6 End stage renal disease; J44.9 Chronic obstructive pulmonary disease, unspecified; I25.10 Atherosclerotic heart disease of native coronary artery without angina pectoris; Z99.81 Dependence on supplemental oxygen; Z79.82 Long term (current) use of aspirin; Z79.02 Long term (current) use of antithrombotics/antiplatelets; Z99.2 Dependence on renal dialysis
CPT/HCPCS: 80053; 82805; 82962; 84145; 87040; 87637; 93005; 96374; 96375; 99285; 71045; 83605; 83880; 85025; 85610; 93010; J0131; J0692; J1815; J1940; J3372

== ENCOUNTER 2023-10-05 14:40 | Emergency (ER) | payer OTHER, SELFPAY ==
[2023-10-05 14:37] VITALS: BP 129/57; PULSE 62; RESP 18; TEMP 36.8; O2SAT 96
--- NOTE | 2023-10-05 14:45 | DI.CT_ITS ---
Exam(s) CT HEAD CERVICAL SPINE WO EXAM: CT HEAD CERVICAL SPINE WO CLINICAL HISTORY: fall. TECHNIQUE: Imaging Protocol: Axial computed tomography images with coronal and sagittal reformatted images were created and reviewed COMPARISON: No exams were available for comparison FINDINGS: CT Head: Ventricles and Extra axial spaces: Normal in size and morphology for the patient's age. Hemorrhage: None. Cerebral parenchyma: There are areas of decreased attenuation in the white matter most consistent wit h chronic microvascular ischemic disease. 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 No acute mass effect or evidence of an acute territorial infarct are seen. Midline shift: None. Brainstem/Cerebellum: Normal. Calvarium: Normal. Visualized Paranasal sinuses/Mastoids: There are small air-fluid levels in the maxillary sinuses bila terally. There is also opacification of the mastoid air cells bilaterally. Soft Tissues: Unremarkable. CT Cervical Spine: Bones: No acute fracture or subluxation. Age-appropriate degenerative changes are seen in the cervica l spine. Soft Tissues: Atherosclerotic calcification is seen in the carotid arteries. Lung Apices: Clear. IMPRESSION: 1. No acute intracranial process. 2. Mastoiditis and maxillary sinusitis. 3. No acute fracture or subluxation in the cervical spine. RADIATION DOSE DELIVERED: Total DLP DATA REPOSITORY: All CT scans at this facility are submitted to the National Radiology Data Registry (NRDR) Dose Index Registry (DIR) with the [employer] ([employer]). RADIATION OPTIMIZATION: All CT scans at this facility use at least one of these dose optimization te chniques: automated exposure control; mA and/or kV adjustment per patient size (includes targeted exa ms where dose is matched to clinical indication); or iterative reconstruction.
--- NOTE | 2023-10-05 14:49 | DI.RAD_ITS ---
Exam(s) XR FOREARM LT EXAM: XR FOREARM LT CLINICAL HISTORY: fall trauma. TECHNIQUE: 2D digital imaging was performed of the left forearm. Two views were obtained. AP and l ateral views were obtained. COMPARISON: No exams were available for comparison FINDINGS: BONES: No acute fracture is present. No bony destructive lesion is seen. Visualized portion of elbow and wrist joints are unremarkable. SOFT TISSUE: Vascular calcifications are present. IMPRESSION: No acute fracture or dislocation. DATA REPOSITORY: RADIATION DOSE DELIVERED:
--- NOTE | 2023-10-05 14:49 | DI.RAD_ITS ---
Exam(s) XR FOREARM RT EXAM: XR FOREARM RT CLINICAL HISTORY: fall trauma. TECHNIQUE: 2D digital imaging was performed of the left forearm. Two views were obtained. AP and l ateral views were obtained. COMPARISON: There are no priors for comparison. FINDINGS: BONES: No acute fracture is present. No bony destructive lesion is seen. Visualized portion of elbow and wrist joints are unremarkable. SOFT TISSUE: Vascular calcifications are present. IMPRESSION: No acute fracture or dislocation. DATA REPOSITORY: RADIATION DOSE DELIVERED:
--- NOTE | 2023-10-05 14:51 | ED.GENADUL_ITS ---
Discharge Plan Disposition Patient Disposition: [facility] Condition: Stable Discharge Details Clinical Impression: Multiple skin tears, Fall Primary Care Provider: Lucho Zhu ED Provider: Becca Lazo [place] Meds and New Rx's Prescriptions: Continued allopurinol 100 mg tablet 100 mg PO DAILY aspirin [Adult Low Dose Aspirin] 81 mg tablet,delayed release (DR/EC) 81 mg PO DAILY atorvastatin 40 mg tablet 40 mg PO DAILY calcitriol 0.5 mcg capsule 0.5 mcg PO Q OTHER DAY Patient Comments: Given Saturday, Saturday, Saturday calcium carbonate 500 mg calcium (1,250 mg) tablet 500 mg PO QID clopidogrel 75 mg tablet 75 mg PO DAILY bisacodyl [Dulcolax (bisacodyl)] 10 mg suppository 10 mg ND ONCE PRN finasteride 5 mg tablet 5 mg PO DAILY ipratropium-albuterol 0.5 mg-3 mg(2.5 mg base)/3 mL solution for nebulization 3 ml inhalation Q4H PRN isosorbide mononitrate 120 mg tablet extended release 24 hr 120 mg PO DAILY metoprolol tartrate 25 mg tablet 25 mg PO BID ondansetron 4 mg tablet,disintegrating 4 mg PO BID-TID PRN prednisone 20 mg tablet 20 mg PO DAILY Rx Instructions: days 11-21 of therapy pantoprazole [Protonix] 40 mg tablet,delayed release (DR/EC) 40 mg PO DAILY albuterol sulfate [Proventil HFA] 90 mcg/actuation HFA aerosol inhaler 2 inh inhalation Q4H PRN sevelamer carbonate [Renvela] 2.4 gram powder in packet 2.4 g PO TID Rx Instructions: must administer with a meal/food sennosides-docusate sodium [2-in-1 Laxative] 8.6-50 mg tablet 1 tab-cap PO BID sertraline 25 mg tablet 25 mg PO DAILY tamsulosin 0.4 mg capsule 0.4 mg PO DAILY tiotropium bromide 18 mcg capsule, w/inhalation device 1 cap inhalation DAILY Rx Instructions: puncture 1 cap using device; one dose = 2 inhalations Trelegy Ellipta 200-62.5-25 mcg blister with device 1 inh inhalation DAILY nicotine [Nicoderm CQ] 14 mg/24 hr patch 24 hour 1 patch transdermal DAILY nitroglycerin 0.4 mg tablet, sublingual 0.4 mg sublingual Q5-15M PRN Rx Instructions: do not exceed 3 doses per episode metoprolol succinate 100 mg tablet extended release 24 hr 100 mg PO DAILY acetaminophen 325 mg capsule 650 mg PO QID PRN quetiapine 25 mg tablet 25 mg PO DAILY Discharge Instructions Instructions: Fall Prevention for Older Adults (ED), Skin Tear (ED) Additional Instructions: Keep clean and dry. Change dressing daily. No evidence of intracranial bleeding or abnormality, no broken bones. Follow up with primary care provider in 3-5 days. Return to ED sooner if any worsening or concerns. Increase oral fluids. Please take Tylenol with food every 4-6 hours as needed for pain and swelling. Referrals: Lucho Zhu [Primary Care Provider] - 3 days Discharge Data Discharge Date/Time-TO BE ENTERED AT DEPARTURE: 10/05/23 16:55 HPI <Mandeep Zamora NP - Last Filed: 10/06/23 08:30> General Mode of arrival: EMS . Date/Time Provider Initiated Documentation: 10/05/23 14:43 . Information obtained by: patient and RN notes reviewed . History of Present Illness 83 year old M presents to the emergency department with the chief complaint of fall-bilateral arm pain and wounds, described as moderate, Patient started experiencing this hour(s) (1) and it has been constant. Patient notes no other symptoms.. Related Data Home Medications Medication Instructions Recorded Confirmed albuterol sulfate 90 mcg/actuation 2 inh inhalation Q4H PRN 05/20/23 09/19/23 aerosol inhaler (Proventil HFA) allopurinol 100 mg tablet 100 mg PO DAILY 05/20/23 09/19/23 aspirin 81 mg tablet,delayed 81 mg PO DAILY 05/20/23 09/19/23 release (Adult Low Dose Aspirin) atorvastatin 40 mg tablet 40 mg PO DAILY 05/20/23 09/19/23 bisacodyl 10 mg rectal suppository 10 mg ND ONCE PRN 05/20/23 09/19/23 (Dulcolax (bisacodyl)) calcitriol 0.5 mcg PO Q OTHER DAY 05/20/23 09/19/23 calcium carbonate 500 mg calcium 500 mg PO QID 05/20/23 09/19/23 (1,250 mg) tablet clopidogrel 75 mg tablet 75 mg PO DAILY 05/20/23 09/19/23 finasteride 5 mg tablet 5 mg PO DAILY 05/20/23 09/19/23 fluticasone fur. 200 mcg-umeclid 1 inh inhalation DAILY 05/20/23 09/19/23 62.5 mcg-vilant 25 mcg inhalat.powder (Trelegy Ellipta) ipratropium 0.5 mg-albuterol 3 mg 3 ml inhalation Q4H PRN 05/20/23 09/19/23 (2.5 mg base)/3 mL nebulization soln isosorbide mononitrate 120 mg 120 mg PO DAILY 05/20/23 09/19/23 tablet,extended release 24 hr metoprolol tartrate 25 mg tablet 25 mg PO BID 05/20/23 09/19/23 ondansetron 4 mg disintegrating 4 mg PO BID-TID PRN 05/20/23 09/19/23 tablet pantoprazole 40 mg tablet,delayed 40 mg PO DAILY 05/20/23 09/19/23 release (Protonix) prednisone 20 mg tablet 20 mg PO DAILY 05/20/23 09/19/23 sennosides 8.6 mg-docusate sodium 1 tab-cap PO BID 05/20/23 09/19/23 50 mg tablet (2-in-1 Laxative) sertraline 25 mg tablet 25 mg PO DAILY 05/20/23 09/19/23 sevelamer carbonate 2.4 gram oral 2.4 g PO TID 05/20/23 09/19/23 powder packet (Renvela) tamsulosin 0.4 mg capsule 0.4 mg PO DAILY 05/20/23 09/19/23 tiotropium bromide 18 mcg capsule 1 cap inhalation DAILY 05/20/23 09/19/23 with inhalation device nicotine 14 mg/24 hr daily 1 patch transdermal DAILY 06/17/23 09/19/23 transdermal patch (Nicoderm CQ) nitroglycerin 0.4 mg sublingual 0.4 mg sublingual Q5-15M PRN 06/17/23 09/19/23 tablet acetaminophen 325 mg capsule 650 mg PO QID PRN 09/19/23 09/19/23 metoprolol succinate 100 mg 100 mg PO DAILY 09/19/23 09/19/23 tablet,extended release 24 hr quetiapine 25 mg tablet 25 mg PO DAILY 09/19/23 09/19/23 Allergies Allergy/AdvReac Type Severity Reaction Status Date / Time heparin Allergy Unknown Other (See Unverified 09/19/23 17:12 Comment) General Stated Complaint: Fall/Non TraumaCriteria ISIAH: 4 Review of Systems <Mandeep Zamora NP - Last Filed: 10/06/23 08:30> Constitutional Constitutional: Denies headache(s) Eyes Eyes: Denies change in vision ENT Ears, Nose, Mouth, and Throat: Denies headache(s) and Denies neck pain Cardiovascular Cardiovascular: Denies chest pain, Denies syncope, Denies lightheadedness and Denies dyspnea Respiratory Respiratory: Denies dyspnea Gastrointestinal Gastrointestinal: Denies abdominal pain Musculoskeletal Musculoskeletal: Reports as per HPI and Denies neck pain Integumentary/Breasts Skin/Breast: Reports as per HPI and Reports wounds Neurologic Neurologic: Denies syncope, Denies headache(s) and Denies paresthesias Exam <Mandeep Zamora NP - Last Filed: 10/06/23 08:30> Extrem Right upper extremity: elbow/forearm Details: tenderness Location: proximal forearm, ecchymosis proximal Details: multiple and distal pulses intact and wrist Details: tenderness Location: of the distal radius and of the distal ulna, laceration (Multiple skin tears), ecchymosis distal Details: multiple and normal vascular exam Left upper extremity: elbow/forearm Details: tenderness and wrist Details: tenderness, laceration (Multiple skin tears), ecchymosis and normal vascular exam Course <PREETI Hebert Last Filed: 10/06/23 08:30> Vital Signs Vital signs: Vital Signs Temperature 36.8 C 10/05/23 14:37 Pulse 62 10/05/23 14:37 Respiratory Rate 18 10/05/23 14:37 Blood Pressure 129/57 L 10/05/23 14:37 Pulse Oximetry 96 10/05/23 14:37 Temperature 36.8 C 10/05/23 14:37 Temperature Source Temporal Artery Scan 10/05/23 14:37 Pulse 62 10/05/23 14:37 Respiratory Rate 18 10/05/23 14:37 Respiratory Effort Normal, Non-Labored 10/05/23 14:45 Blood Pressure 129/57 L 10/05/23 14:37 Blood Pressure Position Supine 10/05/23 14:37 Pulse Oximetry 96 10/05/23 14:37 Oxygen Delivery Method Room Air 10/05/23 14:37 Oxygen Flow Rate 0 10/05/23 14:37 Medical Decision Making <Mandeep Zamora NP - Last Filed: 10/06/23 08:30> Patient presenting to the emergency department via EMS for fall out of bed at nursing facility. Patient reports mechanical fall, denies any medical complaints preceding event. Patient reports that he did hit his head but no loss of consciousness, denies headache vision change or neurological symptoms. Patient mostly complains of bilateral arm pain mainly in the forearms along with multiple skin tears. Patient has ESRD, CAD, physical exam shows no gross neurodeficit, shows multiple skin tears and ecchymosis to bilateral forearms, clear lung sounds, normal cardiac exam, no reproducible or palpable chest pain tenderness, no hip tenderness, stable pelvis, bilateral forearm tenderness extending from the elbows down to the wrist without focal tenderness. Pulses are intact, sensation intact and gross movement intact. Given the patient states that he hit his head and is on aspirin and clopidogrel will perform CT imaging of head and neck, will perform plain film imaging of bilateral forearms but I suspect most discomfort is secondary to ecchymosis and soft tissue injury. Will perform acute wound care on skin tears. Quality:[facility] Health Related Social Needs: No Data to Display <Becca Lazo NP - Last Filed: 10/05/23 17:39> Patient presenting to the emergency department via EMS for fall out of bed at nursing facility. Patient reports mechanical fall, denies any medical complaints preceding event. Patient reports that he did hit his head but no loss of consciousness, denies headache vision change or neurological symptoms. Patient mostly complains of bilateral arm pain mainly in the forearms along with multiple skin tears. Patient has ESRD, CAD, physical exam shows no gross neurodeficit, shows multiple skin tears and ecchymosis to bilateral forearms, clear lung sounds, normal cardiac exam, no reproducible or palpable chest pain tenderness, no hip tenderness, stable pelvis, bilateral forearm tenderness extending from the elbows down to the wrist without focal tenderness. Pulses are intact, sensation intact and gross movement intact. Given the patient states that he hit his head and is on aspirin and clopidogrel will perform CT imaging of head and neck, will perform plain film imaging of bilateral forearms but I : suspect most discomfort is secondary to ecchymosis and soft tissue injury. Will perform acute wound care on skin tears. 1548: SJ: Care assumed from provider (Arpit Zamora NP) Please see their initial HPI, PE, and documentation. Discussed patient details and case and pending workup and disposition. Patient is hemodynamically stable, and alert and oriented. At the time of signout awaiting road test, imaging results and wound care. CT WNL, no evidence of acute intracranial abnormality. Wound care performed x- rays of forearms are negative for acute fracture. Patient to be transferred [facility]. Family informed of plan of care. Patient remained hemodynamically stable alert and oriented throughout the remainder of his stay. This text was generated using [employer] dictation system, please disregard any oddities of phrase or misspellings. Imaging Data Radiologic Study: Imaging: CT Scan Radiologist's impression: TECHNIQUE: Imaging protocol: Computed tomography of the head without contrast. Radiation optimization: All CT scans at this facility use at least one of these dose optimization techniques: automated exposure control; mA and/or kV adjustment per patient size (includes targeted exams where dose is matched to clinical indication); or iterative reconstruction. COMPARISON: No relevant prior studies available. FINDINGS: Brain: Cerebral volume loss noted. Scattered areas of decreased attenuation in the deep periventricular white matter consistent with small vessel ischemic change. No evidence for acute intracranial hemorrhage. Cerebral ventricles: No ventriculomegaly. Paranasal sinuses: There are small air-fluid levels in the maxillary sinuses bilaterally. Mastoid air cells: There is opacification of the mastoid air cells bilaterally. Bones/joints: Unremarkable. No acute fracture. Soft tissues: Unremarkable. IMPRESSION: 1. Senescent changes noted. No acute intracranial abnormality. 2. Inflammatory changes noted in the mastoid air cells bilaterally. Exam: CT Cervical Spine Without Contrast Exam date and time: 10/05/2023 3:07 PM Age: 83 years old Clinical indication: Other: Fall TECHNIQUE: Imaging protocol: Computed tomography of the cervical spine without contrast. Radiation optimiza tion: All CT scans at this facility use at least one of these dose optimization techniques: automated exposure control; mA and/or kV adjustment per patient size (includes targeted exams where dose is matched to clinical indication); or iterative reconstruction. COMPARISON: CR XR PORTABLE CHEST AP 09/19/2023 6:00 PM FINDINGS: Tubes, catheters and devices: Left-sided double-lumen catheter noted. Bones/joints: There is some straightening of the normal cervical lordosis, nonspecific but commonly seen with underlying muscle spasm. Vertebral body height is well preserved. There is no evidence for fracture. There is multilevel spondylosis with mild upper cervical stenosis C3-C4. Mastoid air cells: Bilateral mastoid air cell opacification. Lungs: Lung apices are normal. Vasculature: There is significant calcification present in the carotid arteries bilaterally. Soft tissues: See Bones/joints finding. IMPRESSION: Spondylosis with mild upper cervical stenosis. No evidence for fracture. PFSH <Mandeep Zamora NP - Last Filed: 10/06/23 08:30> All Active Problems (Updated 10/05/23 @ 16:28 by Becca Lazo NP) Fall (Acute) Multiple skin tears (Acute) Acute hyperkalemia (Acute) End stage renal disease on dialysis (Acute) Respiratory failure (Acute) Fever (Acute) COVID-19 (Acute) Social History Smoking/Tobacco Use Status: Current-Occasional Smoking risk assessment performed?: Yes Alcohol Intake: never Drug use: Never Substance use type: does not use Housing: [facility] Do you feel safe at home: Yes Do you feel safe in your relationship?: Yes Additional Social history: resident at [facility] Sign Out <Mandeep Zamora NP - Last Filed: 10/06/23 08:30> Sign Out Data: Sign Out Comment: Patient signed out pending radiology interpretation of imaging and disposition. Last updated by Mandeep Zamora NP at 10/05/23 15:28
--- NOTE | 2023-10-05 15:42 | DI.VRAD_ITS ---
PROCEDURE INFORMATION: Exam: CT Head Without Contrast Exam date and time: 10/05/2023 3:07 PM Age: 83 years old Clinical indication: Other: Fall TECHNIQUE: Imaging protocol: Computed tomography of the head without contrast. Radiation optimization: All CT scans at this facility use at least one of these dose optimization techniques: automated exposure control; mA and/or kV adjustment per patient size (includes targeted exams where dose is matched to clinical indication); or iterative reconstruction. COMPARISON: No relevant prior studies available. FINDINGS: Brain: Cerebral volume loss noted. Scattered areas of decreased attenuation in the deep periventricular white matter consistent with small vessel ischemic change. No evidence for acute intracranial hemorrhage. Cerebral ventricles: No ventriculomegaly. Paranasal sinuses: There are small air-fluid levels in the maxillary sinuses bilaterally. Mastoid air cells: There is opacification of the mastoid air cells bilaterally. Bones/joints: Unremarkable. No acute fracture. Soft tissues: Unremarkable. IMPRESSION: 1. Senescent changes noted. No acute intracranial abnormality. 2. Inflammatory changes noted in the mastoid air cells bilaterally. PROCEDURE INFORMATION: Exam: CT Cervical Spine Without Contrast Exam date and time: 10/05/2023 3:07 PM Age: 83 years old Clinical indication: Other: Fall TECHNIQUE: Imaging protocol: Computed tomography of the cervical spine without contrast. Radiation optimization: All CT scans at this facility use at least one of these dose optimization techniques: automated exposure control; mA and/or kV adjustment per patient size (includes targeted exams where dose is matched to clinical indication); or iterative reconstruction. COMPARISON: CR XR PORTABLE CHEST AP 09/19/2023 6:00 PM FINDINGS: Tubes, catheters and devices: Left-sided double-lumen catheter noted. Bones/joints: There is some straightening of the normal cervical lordosis, nonspecific but commonly seen with underlying muscle spasm. Vertebral body height is well preserved. There is no evidence for fracture. There is multilevel spondylosis with mild upper cervical stenosis C3-C4. Mastoid air cells: Bilateral mastoid air cell opacification. Lungs: Lung apices are normal. Vasculature: There is significant calcification present in the carotid arteries bilaterally. Soft tissues: See Bones/joints finding. IMPRESSION: Spondylosis with mild upper cervical stenosis. No evidence for fracture. Dictated and Authenticated by: Barbi Kamara MD. Ordering:DANDRE Kaufman MD
[2023-10-05] MEDS: Lidocaine/Epinephri/Tetracaine Topical Gel 3 ML ×2 (15:50)
--- NOTE | 2023-10-05 16:16 | DI.VRAD_ITS ---
PROCEDURE INFORMATION: Exam: XR Left Forearm Exam date and time: 10/05/2023 3:24 PM Age: 83 years old Clinical indication: Pain; Lower or forearm; Left; Patient HX: Fall, trauma TECHNIQUE: Imaging protocol: Radiologic exam of the left forearm. Views: 2 views. COMPARISON: No relevant prior studies available. FINDINGS: Bones/joints: Normal. Soft tissues: Normal. IMPRESSION: No acute findings. Dictated and Authenticated by: Srikanth Hodges MD. Ordering:DANDRE Kaufman MD
--- NOTE | 2023-10-05 16:16 | DI.VRAD_ITS ---
PROCEDURE INFORMATION: Exam: XR Right Forearm Exam date and time: 10/05/2023 3:29 PM Age: 83 years old Clinical indication: Pain; Lower or forearm; Right; Patient HX: Fall, trauma TECHNIQUE: Imaging protocol: Radiologic exam of the right forearm. Views: 2 views. COMPARISON: No relevant prior studies available. FINDINGS: Bones/joints: Normal. Soft tissues: Normal. IMPRESSION: No acute findings. Dictated and Authenticated by: Srikanth Hodges MD. Ordering:DANDRE Kaufman MD
== END 2023-10-05 16:55 | disposition skilled nursing facility (03) ==
PROVIDERS: Emergency Provider Registered Nurse Emergency; PCP Family Medicine
DX: S51.812A Laceration without foreign body of left forearm, initial encounter (principal); S51.811A Laceration without foreign body of right forearm, initial encounter; I25.10 Atherosclerotic heart disease of native coronary artery without angina pectoris; I12.0 Hypertensive chronic kidney disease with stage 5 chronic kidney disease or end stage renal disease; N18.6 End stage renal disease; F17.200 Nicotine dependence, unspecified, uncomplicated; Z79.82 Long term (current) use of aspirin; Z79.01 Long term (current) use of anticoagulants; Z99.2 Dependence on renal dialysis; W06.XXXA Fall from bed, initial encounter; Y93.89 Activity, other specified; Y92.092 Bedroom in other non-institutional residence as the place of occurrence of the external cause
CPT/HCPCS: 99284; 70450; 72125; 73090

== ENCOUNTER 2023-10-28 21:16 | Outpatient (REF) | payer OTHER, SELFPAY ==
[2023-10-28 21:56] LABS: Bilirubin Negative (Negative); Blood Small (Negative); Clarity Clear (Clear); Glucose Negative (Negative); Ketones Negative (Negative); Leukocyte Esterase Small (Negative); Nitrite Negative (Negative); Urobilinogen 0.2 mg/dL (Up to 0.2)
[2023-10-28 22:07] LABS: Bacteria Negative HPF (Negative); C & S Indicated? C&S Done As Ordered; Casts 0-2 Hyaline LPF (Negative); Crystals Negative HPF (Negative); Epithelial Cells Rare HPF (Negative); Mucus Trace (Negative)
== END 2023-10-28 21:17 | disposition home or self-care (01) ==
LOC: LBN 21:16
PROVIDERS: PCP Family Medicine; Visit Provider Family Medicine
DX: N39.0 Urinary tract infection, site not specified (principal)
CPT/HCPCS: 81003; 81015; 87086

== ENCOUNTER 2024-01-18 15:00 | Outpatient (REF) | payer OTHER, SELFPAY ==
[2024-01-18 15:18] LABS: Abs Immature Grans 0.04 10^3/uL (0.0-0.06); Absolute Basophil Count 0.08 10^3/uL (0.0-0.2); Absolute Eosinophil Count 0.51 10^3/uL (0.0-0.7); Absolute Lymphocyte Count 1.07 10^3/uL (1.2-3.4); Absolute Monocyte Count 1.04 10^3/uL (0.1-0.8); Absolute Neutrophil Count 6.04 10^3/uL (1.2-6.7); Basophils % 0.9 %; Eosinophils % 5.8 %; HCT 35.8 % (40.0-50.0); Immature Grans % 0.5 %; Lymphocytes % 12.2 %; MCH 30.3 pg (27.0-33.0); MCHC 30.7 % (32.0-36.0); MCV 99 fL (80-95); Monocytes % 11.8 %; Neutrophils % 68.8 %; Platelet Count 165 10^3/uL (130-400); RBC 3.63 10^6/uL (4.36-5.78); RDW 15.7 % (11.8-14.1); RDW-SD 57.4 fL; WBC 8.78 10^3/uL (4.4-10.8)
[2024-01-18 15:21] LABS: AST 9 U/L (15-37); Alkaline Phosphatase 117 U/L (46-116); Anion Gap 7.7 mmol/L (3-11); BUN 23 mg/dL (7-18); Bilirubin, Total 0.42 mg/dL (0.2-1.0); CO2 34.3 mmol/L (21.0-32.0); Calcium 9.1 mg/dL (8.5-10.1); Chloride 98 mmol/L (98-107); Estimated GFR 11.81 (mL/min/1.73m2); Glucose 147 mg/dL (74-106); Potassium 3.3 mmol/L (3.5-5.1); Sodium 140 mmol/L (136-145); Total Protein 6.8 g/dL (6.4-8.2)
[2024-01-18 17:27] LABS: ALT < 6 U/L (16-63); CREATININE 4.7 mg/dL (0.70-1.30)
[2024-01-18 17:29] LABS: Lactate 2.8 mmol/L (0.6-1.4)
== END 2024-01-18 15:01 | disposition home or self-care (01) ==
LOC: LBN 15:00
PROVIDERS: PCP Family Medicine; Visit Provider Family Medicine
DX: J18.9 Pneumonia, unspecified organism (principal)
CPT/HCPCS: 80053; 87637; 83605; 85025

== ENCOUNTER 2024-01-18 20:50 | Emergency (ER) | payer OTHER, MEDICARE, SELFPAY ==
[2024-01-18] VITALS (50 sets, daily range): BP systolic 40–207; BP diastolic 20–78; PULSE 62–204; RESP 18–37; TEMP 37.4–39.4; O2SAT 89–99
--- NOTE | 2024-01-18 20:30 | RT.EKG_ITS ---
APPROVED REPORT Exam: Resting ECG Reason for Exam: SOB Patient Location: E HR:124 bpm ECG Measurements Heart Rate 124 AXIS OR 158 P 132 QRSd 122 QRS 16 QT 316 T 224 QTc 454 Conclusion Sinus tachycardia...rate> 99 IVCD, consider LBBB...QRSd>120, notch/slur R I aVL V5-6 Physician: no stemi, negative sgarbossa
[2024-01-18 21:11] LABS: Lactate 1.7 mmol/L (0.6-1.4)
[2024-01-18] MEDS: ACETAMINOPHEN 1,000 MG/100 ML BTL 400 MG IVPB (21:17)
[2024-01-18 21:21] LABS: BE (Venous) 8 mmol/L (-2-3); HCO3 (Venous) 33 mmol/L (23-28); O2 Sat (Venous) 51 %; TCO2 (Venous) 31 mmol/L (24-29); pCO2 (Venous) 59 mmHg (41-51); pH (Venous) 7.37 (7.31-7.41); pO2 (Venous) 28 mmHg
--- NOTE | 2024-01-18 21:24 | ED.GENADUL_ITS ---
Discharge Plan Disposition Patient Disposition: Transfer-Acute Inpatient Care Specific Acute Inpt Facility: [facility] [place] Condition: Critical Discharge Details Chief Complaint: SOB Clinical Impression: Septic shock, Renal failure, Encephalopathy due to infection, Pneumonia Primary Care Provider: Lucho Zhu ED Provider: Yevgeniy Connors Home Meds and New Rx's Prescriptions: No Action allopurinol 100 mg tablet 100 mg PO DAILY aspirin [Adult Low Dose Aspirin] 81 mg tablet,delayed release (DR/EC) 81 mg PO DAILY atorvastatin 40 mg tablet 40 mg PO DAILY calcitriol 0.5 mcg capsule 0.5 mcg PO Q OTHER DAY Patient Comments: Given Saturday, Saturday, Saturday calcium carbonate 500 mg calcium (1,250 mg) tablet 500 mg PO QID clopidogrel 75 mg tablet 75 mg PO DAILY bisacodyl [Dulcolax (bisacodyl)] 10 mg suppository 10 mg GA ONCE PRN finasteride 5 mg tablet 5 mg PO DAILY ipratropium-albuterol 0.5 mg-3 mg(2.5 mg base)/3 mL solution for nebulization 3 ml inhalation Q4H PRN isosorbide mononitrate 120 mg tablet extended release 24 hr 120 mg PO DAILY metoprolol tartrate 25 mg tablet 25 mg PO BID ondansetron 4 mg tablet,disintegrating 4 mg PO BID-TID PRN prednisone 20 mg tablet 20 mg PO DAILY Rx Instructions: days 11-21 of therapy pantoprazole [Protonix] 40 mg tablet,delayed release (DR/EC) 40 mg PO DAILY albuterol sulfate [Proventil HFA] 90 mcg/actuation HFA aerosol inhaler 2 inh inhalation Q4H PRN sevelamer carbonate [Renvela] 2.4 gram powder in packet 2.4 g PO TID Rx Instructions: must administer with a meal/food sennosides-docusate sodium [2-in-1 Laxative] 8.6-50 mg tablet 1 tab-cap PO BID sertraline 25 mg tablet 25 mg PO DAILY tamsulosin 0.4 mg capsule 0.4 mg PO DAILY tiotropium bromide 18 mcg capsule, w/inhalation device 1 cap inhalation DAILY Rx Instructions: puncture 1 cap using device; one dose = 2 inhalations Trelegy Ellipta 200-62.5-25 mcg blister with device 1 inh inhalation DAILY nicotine [Nicoderm CQ] 14 mg/24 hr patch 24 hour 1 patch transdermal DAILY nitroglycerin 0.4 mg tablet, sublingual 0.4 mg sublingual Q5-15M PRN Rx Instructions: do not exceed 3 doses per episode metoprolol succinate 100 mg tablet extended release 24 hr 100 mg PO DAILY acetaminophen 325 mg capsule 650 mg PO QID PRN quetiapine 25 mg tablet 25 mg PO DAILY HPI General Date/Time Provider Initiated Documentation: 01/18/24 20:55 . HPI Narrative: This is an 83-year-old male with a past medical history of end-stage renal disease currently on dialysis, abdominal aortic aneurysm, BPH, chronic gout, COPD, high cholesterol, history of heart failure, previous TAVR who presents today for respiratory distress. History is extremely unclear, patient is not able to add to history. Patient resides at [facility]. Per EMS they were called today at 11 AM for shortness of breath. Upon their arrival they found the patient on 2 to 3 L. Per EMS the staff at [facility] wanted him brought over to the ER for diagnosis of his shortness of breath. And then EMS stated that they found paperwork from the emergency department visit the day before showing that he had pneumonia and needed to be treated. Per EMS nursing staff then said that this was enough and he actually did not need to go to the ER since now they knew the diagnosis. They also began giving him his medications at that time and stated that they had not known he needed antibiotics prior to that. Later this evening the patient became more short of breath and was having more difficulty breathing. EMS was called and patient was brought to the ER for further management. When I called the rehab center myself the nursing staff currently present was not able to provide me with any additional information. Additionally they cannot procure the paperwork that were allegedly the discharge instructions stating that he had pneumonia and the recommended antibiotic regimen. That being said they do state that he has gotten 1 dose of Levaquin today. Slightly conflicting this is the EMS report which stated that all medications were held today because the patient was nauseous. Patient cannot add any additional components. Because of the patient's wheezes that EMS noted they did give him 1 DuoNeb, 1 albuterol nebulizer, 125 of Solu-Medrol, and 2 g of magnesium and route. Related Data Home Medications Medication Instructions Recorded Confirmed albuterol sulfate 90 mcg/actuation 2 inh inhalation Q4H PRN 05/20/23 09/19/23 aerosol inhaler (Proventil HFA) allopurinol 100 mg tablet 100 mg PO DAILY 05/20/23 09/19/23 aspirin 81 mg tablet,delayed 81 mg PO DAILY 05/20/23 09/19/23 release (Adult Low Dose Aspirin) atorvastatin 40 mg tablet 40 mg PO DAILY 05/20/23 09/19/23 bisacodyl 10 mg rectal suppository 10 mg GA ONCE PRN 05/20/23 09/19/23 (Dulcolax (bisacodyl)) calcitriol 0.5 mcg PO Q OTHER DAY 05/20/23 09/19/23 calcium carbonate 500 mg PO QID 05/20/23 09/19/23 clopidogrel 75 mg tablet 75 mg PO DAILY 05/20/23 09/19/23 finasteride 5 mg tablet 5 mg PO DAILY 05/20/23 09/19/23 fluticasone fur. 200 mcg-umeclid 1 inh inhalation DAILY 05/20/23 09/19/23 62.5 mcg-vilant 25 mcg inhalat.powder (Trelegy Ellipta) ipratropium 0.5 mg-albuterol 3 mg 3 ml inhalation Q4H PRN 05/20/23 09/19/23 (2.5 mg base)/3 mL nebulization soln isosorbide mononitrate 120 mg 120 mg PO DAILY 05/20/23 09/19/23 tablet,extended release 24 hr metoprolol tartrate 25 mg tablet 25 mg PO BID 05/20/23 09/19/23 ondansetron 4 mg disintegrating 4 mg PO BID-TID PRN 05/20/23 09/19/23 tablet pantoprazole 40 mg tablet,delayed 40 mg PO DAILY 05/20/23 09/19/23 release (Protonix) prednisone 20 mg tablet 20 mg PO DAILY 05/20/23 09/19/23 sennosides 8.6 mg-docusate sodium 1 tab-cap PO BID 05/20/23 09/19/23 50 mg tablet (2-in-1 Laxative) sertraline 25 mg tablet 25 mg PO DAILY 05/20/23 09/19/23 sevelamer carbonate 2.4 gram oral 2.4 g PO TID 05/20/23 09/19/23 powder packet (Renvela) tamsulosin 0.4 mg capsule 0.4 mg PO DAILY 05/20/23 09/19/23 tiotropium bromide 18 mcg capsule 1 cap inhalation DAILY 05/20/23 09/19/23 with inhalation device nicotine 14 mg/24 hr daily 1 patch transdermal DAILY 06/17/23 09/19/23 transdermal patch (Nicoderm CQ) nitroglycerin 0.4 mg sublingual 0.4 mg sublingual Q5-15M PRN 06/17/23 09/19/23 tablet acetaminophen 325 mg capsule 650 mg PO QID PRN 09/19/23 09/19/23 metoprolol succinate 100 mg 100 mg PO DAILY 09/19/23 09/19/23 tablet,extended release 24 hr quetiapine 25 mg tablet 25 mg PO DAILY 09/19/23 09/19/23 Allergies Allergy/AdvReac Type Severity Reaction Status Date / Time heparin Allergy Unknown Other (See Unverified 09/19/23 17:12 Comment) General Stated Complaint: SOB ISIAH: 2 Review of Systems All systems reviewed & are unremarkable except as noted in HPI and below Exam Narrative Exam Narrative: 1.Const: Well-nourished, Well-developed, appearing stated age 2.Eyes: PERRL, no conjunctival injection, and symmetrical lids. 3.ENT: Atraumatic external nose and ears. Dry MM. Neck: Symmetric, trachea midline, No thyromegaly. 4.CVS: +S1/S2, No murmurs or gallops. Peripheral pulses 2+ and equal in all extremities. Brisk capillary refill in all extremities. 5.RESP: Tachypneic, rhonchorous breath sounds throughout. Bilateral inspiratory and expiratory wheezes. 6.GI: Soft, Nontender/Nondistended, No hepatosplenomegaly. No guarding or rebound. 7.MSK: Normocephalic/Atraumatic, Extremities w/o deformity or ttp No cyanosis or clubbing, Normal movement of all extremities. No pitting edema. 8.Skin: Warm, Dry. No rashes or lesions. 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 Sensation grossly intact, no focal neurologic deficits. 10.Psych: Patient does not answer any questions. He looks around, moves his extremities, and does follow some commands. Eyes remains spontaneously open. Course Vital Signs Vital signs: Vital Signs Temperature 39.4 C H 01/18/24 20:38 Pulse 120 H 01/18/24 20:38 Respiratory Rate 36 H 01/18/24 20:38 Pulse Oximetry 99 01/18/24 20:38 Temperature 39.4 C H 01/18/24 20:38 Temperature Source Axillary 01/18/24 20:38 Pulse 120 H 01/18/24 20:38 Respiratory Rate 36 H 01/18/24 20:38 Blood Pressure Position Sitting 01/18/24 20:38 Pulse Oximetry 99 01/18/24 20:38 Oxygen Delivery Method OxyMask 01/18/24 20:38 Oxygen Flow Rate 8 01/18/24 20:38 Lab/Test Results Lab/Test Results: 01/18/24 21:14 Blood Blood Culture - Pending 01/18/24 20:56 Blood Blood Culture - Pending Laboratory Tests Range/Units 01/18/24 01/18/24 21:06 21:14 VBG pH (7.31-7.41) 7.37 VBG pCO2 (41-51) mmHg 59 H VBG pO2 mmHg 28 VBG HCO3 (23-28) mmol/L 33 H VBG Total CO2 (24-29) mmol/L 31 H VBG O2 Saturation % 51 VBG Base Excess (-2-3) mmol/L 8 H VBG Lactate (0.6-1.4) mmol/L 1.7 H Medical Decision Making This is an 83-year-old male with a past medical history of end-stage renal disease currently on dialysis, abdominal aortic aneurysm, BPH, chronic gout, COPD, high cholesterol, history of heart failure, previous TAVR who presents today for respiratory distress. History is extremely unclear, patient is not able to add to history. Patient resides at [facility]. Per EMS they were called today at 11 AM for shortness of breath. Upon their arrival they found the patient on 2 to 3 L. Per EMS the staff at [facility] and rehab wanted him brought over to the ER for diagnosis of his shortness of breath. And then EMS stated that they found paperwork from the emergency department visit the day before showing that he had pneumonia and needed to be treated. Per EMS nursing staff then said that this was enough and he actually did not need to go to the ER since now they knew the diagnosis. They also began giving him his medications at that time and stated that they had not known he needed antibiotics prior to that. Later this evening the patient became more short of breath and was having more difficulty breathing. EMS was called and patient was brought to the ER for further management. When I called the rehab center myself the nursing staff currently present was not able to provide me with any additional information. Additionally they cannot procure the paperwork that were allegedly the discharge instructions stating that he had pneumonia and the recommended antibiotic regimen. Nursing staff is not able to provide me with any additional history prior to 7 PM. That being said they do state that he has gotten 1 dose of Levaquin today. Slightly conflicting this is the EMS report which stated that all medications were held today because the patient was nauseous. Patient cannot add any additional components. Because of the patient's wheezes that EMS noted they did give him 1 DuoNeb, 1 albuterol nebulizer, 125 of Solu-Medrol, and 2 g of magnesium and route. Physical exam demonstrates rhonchorous breath sounds throughout, scattered crackles and wheezes throughout. No pitting edema of the lower extremities, dry mucous membranes. Patient does not answer any questions, but he does follow all commands. He is febrile, tachycardic, tachypneic. Out of concern for notable respiratory distress we immediately started BiPAP on arrival. He was on 10 L when he arrived. He is requiring 35% FiO2 to maintain oxygen saturations around 93% on the BiPAP currently. Concern is for sepsis and pneumonia, reactive airway disease/COPD exacerbation, cardiac etiology like ACS or CHF. Patient is a full code. We will continue BiPAP, will start broad-spectrum antibiotics as he meets sepsis criteria and and there is a questionable history of potential diagnosed pneumonia already which appears to be worsening. Will start vancomycin, Zosyn, and azithromycin. Will monitor closely and reassess. As we do not have dialysis capabilities here patient will likely require transport to tertiary care center. 10:20 PM Patient's blood pressure has transition to hypotensive, readings are currently in the 70s systolic. Patient has a white count of 11.8, procalcitonin is elevated at 1.1, electrolytes stable. proBNP greater than 35,000 however the patient does not look overly volume overloaded at this time. Initial troponin slightly elevated at 80. Concern for septic shock and encephalopathy from his current illness. I have placed a proximal right basilic 18-gauge IV. We will start Levophed at 5 mics per minute and titrate to MAP greater than 65. Patient did verbalize no, ouch, stop when I was placing the IV which is a clear verbal response. He continues to track well otherwise and shows no focal deficits although he remains nonverbal. I discussed this with the EMS again and they state that this is what the patient was like at 11 AM as well. Symptoms do not appear consistent with a stroke. We will reach out to [facility] [place] for transfer. Chest x-ray shows notable right-sided pneumonia. 11:06 PM I discussed the case with Dr. Mcarthur and Dr. Miguel of the ICU at [facility] [place], they agree with the assessment and plan and accept the patient for transfer. Patient remained stable on BiPAP, I do not see an indication at this time for intubation. Gag reflex remains notably intact. Patient will be transferred to [facility] [place] via [facility]. I have extensively reviewed the treatment plan with the patient. I have addressed all patient concerns at this time. I have also discussed the plan with the admitting physician and they agree with the current assessment and plan and have agreed to assume responsibility for the patient. All parties demonstrate verbal understanding and agreement with our assessment and plan at this time. The documentation in this chart was dictated using [employer] dictation software. Please excuse any dictation errors. Quality:SDOH Health Related Social Needs: No Data to Display Critical Care Time Critical Care Time Critical Care Time: Yes Total Critical Care Time: 90 Attestation: Upon my evaluation, this patient had a high probability of imminent or life- threatening deterioration, which required my direct attention, intervention, and personal management. I have personally provided 90 minutes of critical care time exclusive of time spent on separately billable procedures. Time includes review of laboratory data, radiology results, discussion with consultants, and monitoring for potential decompensation. Interventions were performed as documented. PFSH All Active Problems (Updated 01/18/24 @ 23:08 by Yevgeniy Connors DO) Pneumonia (Acute) Encephalopathy due to infection (Acute) Renal failure (Chronic) Septic shock (Acute) COVID-19 (Acute) Social History Smoking/Tobacco Use Status: Current-Occasional Smoking risk assessment performed?: Yes Alcohol Intake: never Drug use: Never Substance use type: does not use Housing: halfway Do you feel safe at home: Yes Do you feel safe in your relationship?: Yes Additional Social history: resident at [facility]
[2024-01-18 21:27] LABS: Abs Immature Grans 0.05 10^3/uL (0.0-0.06); Absolute Basophil Count 0.01 10^3/uL (0.0-0.2); Absolute Lymphocyte Count 0.54 10^3/uL (1.2-3.4); Absolute Monocyte Count 0.51 10^3/uL (0.1-0.8); Absolute Neutrophil Count 10.51 10^3/uL (1.2-6.7); Basophils % 0.1 %; Eosinophils % 1.7 %; HCT 37.1 % (40.0-50.0); HGB 11.4 g/dL (13.5-17.5); Immature Grans % 0.4 %; Lymphocytes % 4.6 %; MCH 30.3 pg (27.0-33.0); MCHC 30.7 % (32.0-36.0); MCV 99 fL (80-95); MPV 10.4 fL (8.0-11.0); Monocytes % 4.3 %; Neutrophils % 88.9 %; Platelet Count 158 10^3/uL (130-400); RBC 3.76 10^6/uL (4.36-5.78); RDW 15.7 % (11.8-14.1); RDW-SD 57.3 fL; WBC 11.82 10^3/uL (4.4-10.8)
[2024-01-18] MEDS: AZITHROMYCIN 500 MG in Normal Saline 250 ML 250 MG IVPB (21:30)
[2024-01-18] MEDS: PIPERACILLIN/TAZO 4.5 GM in Normal Saline 100 ML IVPB (21:30)
[2024-01-18 21:45] LABS: INR 1.2 (0.9-1.1); Prothrombin Time 11.8 sec (9.1-11.1)
[2024-01-18 21:46] LABS: AST 12 U/L (15-37); Albumin 3.2 g/dL (3.4-5.0); Alkaline Phosphatase 120 U/L (46-116); BUN 26 mg/dL (7-18); Bilirubin, Total 0.56 mg/dL (0.2-1.0); Calcium 9.2 mg/dL (8.5-10.1); Chloride 98 mmol/L (98-107); Estimated GFR 10.46 (mL/min/1.73m2); Glucose 98 mg/dL (74-106); Potassium 3.4 mmol/L (3.5-5.1); Sodium 139 mmol/L (136-145); Total Protein 7.2 g/dL (6.4-8.2)
[2024-01-18 21:48] LABS: ALT < 6 U/L (16-63)
[2024-01-18 21:49] LABS: CREATININE 5.2 mg/dL (0.70-1.30); Troponin I 83 ng/L (< or =60)
[2024-01-18] MEDS: VANCOMYCIN 1,300 MG in Normal Saline 500 ML 333.3333 MG IVPB (21:56)
[2024-01-18 22:02] LABS: COVID-19 PCR Negative (Negative); Influenza A PCR Negative (Negative); Influenza B PCR Negative (Negative); RSV PCR Negative (Negative)
[2024-01-18 22:03] LABS: Source Nasopharynx
[2024-01-18 22:10] LABS: NT-proBNP > 35000 pg/mL (<300)
[2024-01-18] MEDS: Normal Saline 500 ML IV (22:14)
[2024-01-18 22:15] LABS: Procalcitonin 1.1 ng/mL
--- NOTE | 2024-01-18 22:15 | DI.RAD_ITS ---
Exam(s) XR PORTABLE CHEST AP EXAM: XR PORTABLE CHEST AP CLINICAL HISTORY: sob, cough, eval for pneumonia TECHNIQUE: 2D digital imaging was performed. COMPARISON: CR XR PORTABLE CHEST AP from 09/19/2023 FINDINGS: Exam limited by under penetration at the lung bases. LUNGS: Significant right lower lobe infiltrate. Small bilateral pleural effusions. HEART: Enlarged. Partially obscured. AORTA: Tortuous and calcified aortic valve prosthesis and proximal aortic stent. BONES: Unremarkable for age. Soft tissues: Left-sided dialysis catheter. IMPRESSION: Right lower lobe infiltrate. Small bilateral pleural effusions. DATA REPOSITORY: RADIATION DOSE DELIVERED:
[2024-01-18] MEDS: Norepinephrine in D5W 8 MG/250 ML BAG 9.375 MG IV (22:48)
[2024-01-19] VITALS: PULSE 83; RESP 17; O2SAT 97
[2024-01-19 00:01] VITALS: BP 143/48; PULSE 81; PULSE 88; RESP 20; O2SAT 97
[2024-01-19 00:10] VITALS: PULSE 82; RESP 21; O2SAT 97
[2024-01-19 00:11] VITALS: BP 138/56; PULSE 82; PULSE 83; RESP 21; O2SAT 97
[2024-01-19 00:20] VITALS: PULSE 78; RESP 17
[2024-01-19 00:21] VITALS: BP 170/62; PULSE 78
--- NOTE | 2024-01-19 00:28 | DI.VRAD_ITS ---
PROCEDURE INFORMATION: Exam: XR Chest Exam date and time: 01/18/2024 10:11 PM Age: 83 years old Clinical indication: Cough and shortness of breath; Prior surgery; Surgery date: 6+ months; Surgery type: Stent; Patient HX: SOB, cough, eval for pneumonia. TECHNIQUE: Imaging protocol: Radiologic exam of the chest. Views: 1 view. COMPARISON: CR XR PORTABLE CHEST AP 09/19/2023 6:00 PM FINDINGS: Tubes, catheters and devices: Left-sided hemodialysis catheter present with tip at the cavoatrial junction in good position. Lungs: Focal consolidative changes within the right lower lobe of the lung consistent with acute pneumonia. There are diffuse interstitial infiltrates present. This may represent cardiogenic versus noncardiogenic edema. An acute inflammatory process and/or infectious process/pneumonia are not excluded. Pleural spaces: There is a moderate-sized right pleural effusion present. Heart/Mediastinum: There has been a transcatheter aortic valve replacement (TAVR). There is moderate cardiomegaly. Vasculature: The aorta demonstrates moderate atherosclerotic calcification. The aorta is tortuous and calcified. Bones/joints: The skeletal structures and soft tissues show no evidence of fracture or other acute processes. Soft tissues: The soft tissues of the extrathoracic region are unremarkable. IMPRESSION: 1. Focal consolidative changes within the right lower lobe of the lung consistent with acute pneumonia. 2. There is a moderate-sized right pleural effusion present. 3. There are diffuse interstitial infiltrates present. This may represent cardiogenic versus noncardiogenic edema. An acute inflammatory process and/or infectious process/pneumonia are not excluded. 4. There is moderate cardiomegaly. Dictated and Authenticated by: Kamron Asif MD. Ordering:JUNE Vuong MD
== END 2024-01-19 00:41 | disposition short-term general hospital (02) ==
PROVIDERS: Emergency Provider Student in an Organized Health Care Education/Training Program; PCP Family Medicine
DX: J18.9 Pneumonia, unspecified organism (principal); G93.49 Other encephalopathy; N19 Unspecified kidney failure; A41.9 Sepsis, unspecified organism; Z99.2 Dependence on renal dialysis
CPT/HCPCS: 51798; 80053; 82805; 84145; 87040; 87637; 93005; 96365; 96366; 96367; 96375; 99291; 71045; 83605; 83880; 84484; 85025; 85610; 85730; 93010; J0131; J0456; J2543; J3370

== ENCOUNTER 2024-02-03 08:31 | Emergency (ER) | payer OTHER, SELFPAY ==
[2024-02-03] VITALS (22 sets, daily range): BP systolic 155–199; BP diastolic 70–97; PULSE 72–87; RESP 14–26; TEMP 36.9; O2SAT 93–100
--- NOTE | 2024-02-03 09:25 | W.ED.GENAD ---
Discharge Plan Disposition Patient Disposition: [facility]) Condition: Stable Discharge Details Clinical Impression: Cellulitis of arm, left, Left arm swelling Primary Care Provider: Lucho Zhu ED Provider: Becca Lazo [place] Meds and New Rx's Prescriptions: New cephalexin 500 mg capsule 500 mg PO BID 7 Days Qty: 14 0RF Rx Instructions: Take 1 capsule by mouth with food twice daily x 7 days No Action allopurinol 100 mg tablet 100 mg PO DAILY aspirin [Adult Low Dose Aspirin] 81 mg tablet,delayed release (DR/EC) 81 mg PO DAILY atorvastatin 40 mg tablet 40 mg PO DAILY calcitriol 0.5 mcg capsule 0.5 mcg PO Q OTHER DAY Patient Comments: Given Saturday, Saturday, Saturday calcium carbonate 500 mg calcium (1,250 mg) tablet 500 mg PO QID clopidogrel 75 mg tablet 75 mg PO DAILY bisacodyl [Dulcolax (bisacodyl)] 10 mg suppository 10 mg NE ONCE PRN finasteride 5 mg tablet 5 mg PO DAILY ipratropium-albuterol 0.5 mg-3 mg(2.5 mg base)/3 mL solution for nebulization 3 ml inhalation Q4H PRN metoprolol tartrate 25 mg tablet 25 mg PO BID ondansetron 4 mg tablet,disintegrating 4 mg PO BID-TID PRN pantoprazole [Protonix] 40 mg tablet,delayed release (DR/EC) 40 mg PO DAILY albuterol sulfate [Proventil HFA] 90 mcg/actuation HFA aerosol inhaler 2 inh inhalation Q4H PRN sevelamer carbonate [Renvela] 2.4 gram powder in packet 2.4 g PO TID Rx Instructions: must administer with a meal/food sennosides-docusate sodium [2-in-1 Laxative] 8.6-50 mg tablet 1 tab-cap PO BID sertraline 25 mg tablet 25 mg PO DAILY tamsulosin 0.4 mg capsule 0.4 mg PO DAILY tiotropium bromide 18 mcg capsule, w/inhalation device 1 cap inhalation DAILY Rx Instructions: puncture 1 cap using device; one dose = 2 inhalations Trelegy Ellipta 200-62.5-25 mcg blister with device 1 inh inhalation DAILY nicotine [Nicoderm CQ] 14 mg/24 hr patch 24 hour 1 patch transdermal DAILY nitroglycerin 0.4 mg tablet, sublingual 0.4 mg sublingual Q5-15M PRN Rx Instructions: do not exceed 3 doses per episode acetaminophen 325 mg capsule 650 mg PO QID PRN quetiapine 25 mg tablet 25 mg PO DAILY Discharge Instructions Instructions: Cellulitis (Skin Infection), Adult ED Additional Instructions: Please keep your dialysis appointment today. There is no evidence of blood clot or problem with blood flow to your arm. Please take the antibiotic cephalexin twice daily for the next 7 days as directed. You were given the first dose here in the department. You are also given an albuterol neb here in the department. Please take your previously scheduled medications as directed. Follow up with primary care provider in 3-5 days. Return to ED sooner if any worsening redness, red streaks, fever greater than 100.8 or concerns. Referrals: Lucho Zhu [Primary Care Provider] - 5 days Discharge Data Discharge Date/Time-TO BE ENTERED AT DEPARTURE: 02/03/24 12:40 HPI General Mode of arrival: ambulatory. Date/Time Provider Initiated Documentation: 02/03/24 09:07. Limitations to Documentation: no limitations. Information obtained by: patient, RN notes reviewed and old records reviewed. HPI Narrative: 83-year-old presents to the ER with a chief complaint of possible left arm infection and increased swelling over the last week. Patient is a dialysis patient and has dialysis 3 times a week. He is due for dialysis at 11:00 today. [facility] He does have a dialysis shunt to his upper left arm. He does have some shortness of breath and congestion, he did not use his inhalers this morning. He denies any chest pain. He denies any fever or chills. He does have slight erythema noted to his left forearm. Distal pulses intact. He is mostly wheelchair-bound. On exam he does have rhonchi and bilateral wheezing noted. Related Data Home Medications Medication Instructions Recorded Confirmed albuterol sulfate 90 mcg/actuation 2 inh inhalation Q4H PRN 05/20/23 02/03/24 aerosol inhaler (Proventil HFA) allopurinol 100 mg tablet 100 mg PO DAILY 05/20/23 02/03/24 aspirin 81 mg tablet,delayed 81 mg PO DAILY 10/23/23 07/08/24 release (Adult Low Dose Aspirin) atorvastatin 40 mg tablet 40 mg PO DAILY 05/20/23 02/03/24 bisacodyl 10 mg rectal suppository 10 mg NE ONCE PRN 05/20/23 02/03/24 (Dulcolax (bisacodyl)) calcitriol 0.5 mcg PO Q OTHER DAY 05/20/23 02/03/24 calcium carbonate 500 mg PO QID 05/20/23 02/03/24 clopidogrel 75 mg tablet 75 mg PO DAILY 05/20/23 02/03/24 finasteride 5 mg tablet 5 mg PO DAILY 05/20/23 02/03/24 fluticasone fur. 200 mcg-umeclid 1 inh inhalation DAILY 05/20/23 02/03/24 62.5 mcg-vilant 25 mcg inhalat.powder (Trelegy Ellipta) ipratropium 0.5 mg-albuterol 3 mg 3 ml inhalation Q4H PRN 05/20/23 02/03/24 (2.5 mg base)/3 mL nebulization soln metoprolol tartrate 25 mg tablet 25 mg PO BID 05/20/23 02/03/24 ondansetron 4 mg disintegrating 4 mg PO BID-TID PRN 05/20/23 02/03/24 tablet pantoprazole 40 mg tablet,delayed 40 mg PO DAILY 05/20/23 02/03/24 release (Protonix) sennosides 8.6 mg-docusate sodium 1 tab-cap PO BID 05/20/23 02/03/24 50 mg tablet (2-in-1 Laxative) sertraline 25 mg tablet 25 mg PO DAILY 05/20/23 02/03/24 sevelamer carbonate 2.4 gram oral 2.4 g PO TID 05/20/23 02/03/24 powder packet (Renvela) tamsulosin 0.4 mg capsule 0.4 mg PO DAILY 05/20/23 02/03/24 tiotropium bromide 18 mcg capsule 1 cap inhalation DAILY 05/20/23 02/03/24 with inhalation device nicotine 14 mg/24 hr daily 1 patch transdermal DAILY 06/17/23 02/03/24 transdermal patch (Nicoderm CQ) nitroglycerin 0.4 mg sublingual 0.4 mg sublingual Q5-15M PRN 06/17/23 02/03/24 tablet acetaminophen 325 mg capsule 650 mg PO QID PRN 09/19/23 02/03/24 quetiapine 25 mg tablet 25 mg PO DAILY 09/19/23 02/03/24 cephalexin 500 mg capsule 500 mg PO BID Cellulitis 7 days 02/03/24 #14 caps Previous Rx's Medication Instructions Recorded cephalexin 500 mg capsule 500 mg PO BID Cellulitis 7 days 02/03/24 #14 caps Allergies Allergy/AdvReac Type Severity Reaction Status Date / Time heparin Allergy Unknown Other (See Unverified 02/03/24 08:44 Comment) General Stated Complaint: Cellulitis ISIAH: 3 Review of Systems All systems reviewed & are unremarkable except as noted in HPI and below Integumentary/Breasts Skin/Breast: Reports as per HPI and Reports erythema Exam Narrative Exam Narrative: Constitutional: Alert and oriented x3. Appears stated age. Patient appears nontoxic, chronically ill. Normal body habitus. Head: Normocephalic, no trauma. Eyes: Pupils PERRL, Red reflex noted, EOM's intact. Eyelids symmetrical without lesions, discharge, or swelling. ENT: Is slightly hard of hearing. External ear normal to inspection, no mastoid TTP, swelling, or erythema, Nasal turbinates WNL, no nasal discharge. Normal dentition, Posterior pharynx WNL, no exudate. Chest: RRR, Normal S1, S2, distal pulses intact. Resp: Lungs clear to auscultation bilaterally, no wheezes, rales, or rhonchi. Abdomen: Soft, non-distended, Normoactive bowel sounds all 4 quads. Musculoskeletal: unable to assess gait, moves all 4 extremities without difficulty. No edema noted to his bilateral lower extremities. Skin: Dialysis fistula which appears to be running and is in his upper left arm, he does have some erythema noted to his distal posterior forearm, no induration fluctuance or sign of abscess, no red streaks, no lymphadenopathy to his axilla, no wounds noted, capillary refill less than 2 sec. Neurologic: Cranial nerves II-XII intact. Alert and oriented x 3. Motor: No deficits noted. Sensory: Intact bilaterally all 4 extremities. Hematologic/Lymphatic: , no lymphadenopathy. Course Vital Signs Vital signs: Vital Signs Temperature 36.9 C 02/03/24 08:40 Pulse 79 02/03/24 08:40 Respiratory Rate 14 02/03/24 08:40 Blood Pressure 155/70 H 02/03/24 08:40 Pulse Oximetry 93 02/03/24 08:40 Temperature 36.9 C 02/03/24 08:40 Pulse 79 02/03/24 08:40 Respiratory Rate 14 02/03/24 08:40 Blood Pressure 155/70 H 02/03/24 08:40 Pulse Oximetry 93 02/03/24 08:40 Oxygen Delivery Method Nasal Cannula 02/03/24 08:40 Oxygen Flow Rate 2 02/03/24 08:40 Pain Level 5 02/03/24 08:40 Medical Decision Making 83-year-old presents to the ER with a chief complaint of possible left arm infection and increased swelling over the last week. Patient is a dialysis patient and has dialysis 3 times a week. He is due for dialysis at 11:00 today. [facility]. He does have a dialysis shunt to his upper left arm. He does have some shortness of breath and congestion, he did not use his inhalers this morning. He denies any chest pain. He denies any fever or chills. He does have slight erythema noted to his left forearm. Distal pulses intact. He is mostly wheelchair-bound. On exam he does have rhonchi and bilateral wheezing noted. Venous ultrasound ordered of his left upper extremity to rule out DVT, blood work including CBC CMP blood cultures x 2 and DuoNeb. Will treat for possible cellulitis and get patient to dialysis ideally at his scheduled time. [place] [employer] technician at bedside for ultrasound, he reports no evidence of DVT vessels are compressible there is good flow from the shunt. Will give cephalexin 500 mg p.o. here and attempt to get patient to his dialysis appointment. CBC shows hemoglobin 9.4 hematocrit 30.4, no leukocytosis, neutrophils 7.10, chloride 97 BUN 42 creatinine 6.9 which is around patient's baseline. Alk phos 119 albumin 2.7 Patient given Cephalexin 500mg PO here in the ED, and prescription for Cephalexin PO BID x 7 days for possible cellulitis. Differential diagnosis includes but not limited to edema related to chronic medical condition, fluid overload, DVT which was ruled out with Doppler ultrasound, occult fracture however patient denies any recent injuries, Patient discharged back to [facility] discussed attempting to get his dialysis appointment today verbalizes understanding. This text was generated using [employer] system, please disregard any oddities of phrase or misspellings. Medical Records Medical records reviewed: Yes I reviewed the patient's medical records. Lab Data Lab results reviewed: Yes I reviewed the patient's lab results. Labs: 02/03/24 11:25 Blood Blood Culture - Pending 02/03/24 10:31 Blood Blood Culture - Pending Laboratory Tests Range/Units 02/03/24 10:31 WBC (4.4-10.8) 10^3/uL 9.98 RBC (4.36-5.78) 10^6/uL 3.10 L Hgb (13.5-17.5) g/dL 9.4 L Hct (40.0-50.0) % 30.4 L MCV (80-95) fL 98 H MCH (27.0-33.0) pg 30.3 MCHC (32.0-36.0) % 30.9 L RDW (11.8-14.1) % 17.1 H Plt Count (130-400) 10^3/uL 198 MPV (8.0-11.0) fL 10.8 Immature Gran % % 0.5 Neutrophils % % 71.2 Lymphocytes % % 13.5 Monocytes % % 6.8 Eosinophils % % 7.0 Basophils % % 1.0 Nucleated RBC % (0.0-0.3) % 0.0 Absolute Neutrophils (1.2-6.7) 10^3/uL 7.10 H Absolute Lymphocytes (1.2-3.4) 10^3/uL 1.35 Absolute Monocytes (0.1-0.8) 10^3/uL 0.68 Absolute Eosinophils (0.0-0.7) 10^3/uL 0.70 Absolute Basophils (0.0-0.2) 10^3/uL 0.10 Sodium (136-145) mmol/L 136 Potassium (3.5-5.1) mmol/L 4.4 Chloride (98-107) mmol/L 97 L Carbon Dioxide (21.0-32.0) mmol/L 31.6 Anion Gap (3-11) mmol/L 7.4 BUN (7-18) mg/dL 42 H Creatinine (0.70-1.30) mg/dL 6.9 H* Est GFR (CKD-EPI 2020) (mL/min/1.73m2) 7.45 Glucose (74-106) mg/dL 89 Calcium (8.5-10.1) mg/dL 8.9 Total Bilirubin (0.2-1.0) mg/dL 0.97 AST (15-37) U/L 15 ALT (16-63) U/L 11 L Alkaline Phosphatase (46-116) U/L 119 H Total Protein (6.4-8.2) g/dL 6.9 Albumin (3.4-5.0) g/dL 2.7 L Quality:SDOH Health Related Social Needs: No Data to Display PFSH All Active Problems (Updated 02/03/24 @ 12:22 by Becca Lazo NP) Left arm swelling (Acute) Cellulitis of arm, left (Acute) Pneumonia (Acute) Encephalopathy due to infection (Acute) Renal failure (Chronic) Septic shock (Acute) COVID-19 (Acute) Social History Smoking/Tobacco Use Status: Current-Occasional Smoking risk assessment performed?: Yes Alcohol Intake: never Drug use: Never Substance use type: does not use Housing: longterm Do you feel safe at home: Yes Do you feel safe in your relationship?: Yes Additional Social history: resident at [facility]
--- NOTE | 2024-02-03 09:30 | DI.US_ITS ---
Exam(s) US UPPER EXTREMITY VENOUS LT EXAM: US UPPER EXTREMITY VENOUS LT CLINICAL HISTORY: Left arm swelling, R/O DVT, hx of Dialysis shunt. TECHNIQUE: Ultrasound examination of the left upper extremity venous system(s) is performed using gr ayscale, color-flow, and spectral Doppler analysis. COMPARISON: No exams were available for comparison FINDINGS: The left internal jugular, axillary, subclavian, cephalic, basilic, brachial, radial, and ulnar veins are patent without evidence of thrombosis. A dialysis graft is present is patent. Edema in the sub cutaneous. No focal collection. IMPRESSION: Soft tissue edema. No DVT. No superficial thrombophlebitis. Patent dialysis graft. DATA REPOSITORY:
[2024-02-03] MEDS: Albuterol/Ipratropium 3 ML UPD VIAL UPD (10:10)
[2024-02-03 10:52] LABS: Abs Immature Grans 0.05 10^3/uL (0.0-0.06); Absolute Lymphocyte Count 1.35 10^3/uL (1.2-3.4); Absolute Monocyte Count 0.68 10^3/uL (0.1-0.8); HCT 30.4 % (40.0-50.0); HGB 9.4 g/dL (13.5-17.5); Immature Grans % 0.5 %; Lymphocytes % 13.5 %; MCH 30.3 pg (27.0-33.0); MCHC 30.9 % (32.0-36.0); MCV 98 fL (80-95); MPV 10.8 fL (8.0-11.0); Monocytes % 6.8 %; Neutrophils % 71.2 %; Platelet Count 198 10^3/uL (130-400); RDW 17.1 % (11.8-14.1); RDW-SD 59.7 fL; WBC 9.98 10^3/uL (4.4-10.8)
[2024-02-03 11:21] LABS: ALT 11 U/L (16-63); AST 15 U/L (15-37); Albumin 2.7 g/dL (3.4-5.0); Alkaline Phosphatase 119 U/L (46-116); Anion Gap 7.4 mmol/L (3-11); BUN 42 mg/dL (7-18); Bilirubin, Total 0.97 mg/dL (0.2-1.0); CO2 31.6 mmol/L (21.0-32.0); Calcium 8.9 mg/dL (8.5-10.1); Chloride 97 mmol/L (98-107); Estimated GFR 7.45 (mL/min/1.73m2); Glucose 89 mg/dL (74-106); Potassium 4.4 mmol/L (3.5-5.1); Sodium 136 mmol/L (136-145); Total Protein 6.9 g/dL (6.4-8.2)
[2024-02-03 11:27] LABS: CREATININE 6.9 mg/dL (0.70-1.30)
[2024-02-03] MEDS: Cephalexin 500 MG CAP PO (12:08)
== END 2024-02-03 12:40 | disposition skilled nursing facility (03) ==
PROVIDERS: Emergency Provider Registered Nurse Emergency; PCP Family Medicine
DX: R22.32 Localized swelling, mass and lump, left upper limb (principal); L03.114 Cellulitis of left upper limb; I12.0 Hypertensive chronic kidney disease with stage 5 chronic kidney disease or end stage renal disease; N18.6 End stage renal disease; Z79.82 Long term (current) use of aspirin; Z79.02 Long term (current) use of antithrombotics/antiplatelets; F17.200 Nicotine dependence, unspecified, uncomplicated
CPT/HCPCS: 36415; 80053; 87040; 94640; 99285; 85025; 93971; J7620

== ENCOUNTER 2024-03-01 12:19 | Emergency (ER) | payer OTHER, SELFPAY ==
[2024-03-01] VITALS (45 sets, daily range): BP systolic 134–169; BP diastolic 59–87; PULSE 59–73; RESP 12–23; TEMP 36.4; O2SAT 84–100
--- NOTE | 2024-03-01 12:00 | RT.EKG_ITS ---
APPROVED REPORT Exam: Resting ECG Reason for Exam: lethargic Patient Location: E HR:69 bpm ECG Measurements Heart Rate 69 AXIS VT 177 P 72 QRSd 124 QRS 38 QT 473 T 72 QTc 508 Conclusion Sinus rhythm. [address] depressions similar to prior
--- NOTE | 2024-03-01 12:15 | DI.CT_ITS ---
Exam(s) CT HEAD WO EXAM: CT HEAD WO CLINICAL HISTORY: altered mentation, unknown. TECHNIQUE: Imaging Protocol: Axial computed tomography images with coronal and sagittal reformatted images were created and reviewed COMPARISON: CT CT HEAD CERVICAL SPINE WO from 10/05/2023 FINDINGS: Ventricles and Extra axial spaces: Normal in size and morphology for the patient's age. Hemorrhage: None. Cerebral parenchyma: No evidence of acute infarct or mass. Atrophy. Mild white matter changes of s mall vessel disease. old small area of encephalomalacia in the right posterior frontal lobe. Midline shift: None. 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 Calvarium: Normal. Visualized Paranasal sinuses:Mild mucous retention in the right sphenoid sinus. Mastoids: Clear. Soft Tissues: Unremarkable. ORBITS: Unremarkable. PITUITARY: Not enlarged. IMPRESSION: No acute intracranial process. RADIATION DOSE DELIVERED: Total DLP DATA REPOSITORY: All CT scans at this facility are submitted to the National Radiology Data Registry (NRDR) Dose Index Registry (DIR) with the [employer] (ACR). RADIATION OPTIMIZATION: All CT scans at this facility use at least one of these dose optimization te chniques: automated exposure control; mA and/or kV adjustment per patient size (includes targeted exa ms where dose is matched to clinical indication); or iterative reconstruction.
--- NOTE | 2024-03-01 12:29 | DI.RAD_ITS ---
Exam(s) XR CHEST 1V IN DI DEPT EXAM: XR CHEST 1V IN DI DEPT CLINICAL HISTORY: shortness of breath TECHNIQUE: 2D digital imaging was performed. COMPARISON: CR XR PORTABLE CHEST AP from 09/19/2023 CR,XR XR PORTABLE CHEST AP from 01/18/2024 FINDINGS: The exam is limited by under penetration at the lung bases. LUNGS: Small bilateral pleural effusions. Bilateral pulmonary vascular prominence. Increased inters titial markings could indicate CHF. Posterior infiltrates not excluded. HEART: Enlarged. Partially obscured by the pleural effusion. TAVR. AORTA: Proximal aortic stent. Calcification. BONES: Unremarkable for age. Soft tissues: Central venous catheter unchanged in position. IMPRESSION: Cardiomegaly and CHF. Basilar pneumonia not excluded. DATA REPOSITORY: RADIATION DOSE DELIVERED:
[2024-03-01 13:05] LABS: BE (Venous) 9 mmol/L (-2-3); HCO3 (Venous) 36 mmol/L (23-28); O2 Sat (Venous) 50 %; TCO2 (Venous) 35 mmol/L (24-29); pH (Venous) 7.27 (7.31-7.41); pO2 (Venous) 29 mmHg
[2024-03-01 13:08] LABS: pCO2 (Venous) 78 mmHg (41-51)
--- NOTE | 2024-03-01 13:08 | ED.GENADUL_ITS ---
Discharge Plan Disposition Patient Disposition: Transfer-Acute Inpatient Care Specific Acute Inpt Facility: [facility] Condition: Fair Discharge Details Clinical Impression: Pneumonia, CHF exacerbation, Hypercapnic respiratory failure Primary Care Provider: Lucho Zhu ED Provider: Yevgeniy Vargas Home Meds and New Rx's Prescriptions: No Action allopurinol 100 mg tablet 100 mg PO DAILY aspirin [Adult Low Dose Aspirin] 81 mg tablet,delayed release (DR/EC) 81 mg PO DAILY atorvastatin 40 mg tablet 40 mg PO DAILY calcitriol 0.5 mcg capsule 0.5 mcg PO Q OTHER DAY Patient Comments: Given Saturday, Saturday, Saturday calcium carbonate 500 mg calcium (1,250 mg) tablet 500 mg PO QID clopidogrel 75 mg tablet 75 mg PO DAILY bisacodyl [Dulcolax (bisacodyl)] 10 mg suppository 10 mg AR ONCE PRN finasteride 5 mg tablet 5 mg PO DAILY ipratropium-albuterol 0.5 mg-3 mg(2.5 mg base)/3 mL solution for nebulization 3 ml inhalation Q4H PRN metoprolol tartrate 25 mg tablet 25 mg PO BID ondansetron 4 mg tablet,disintegrating 4 mg PO BID-TID PRN pantoprazole [Protonix] 40 mg tablet,delayed release (DR/EC) 40 mg PO DAILY albuterol sulfate [Proventil HFA] 90 mcg/actuation HFA aerosol inhaler 2 inh inhalation Q4H PRN sevelamer carbonate [Renvela] 2.4 gram powder in packet 2.4 g PO TID Rx Instructions: must administer with a meal/food sennosides-docusate sodium [2-in-1 Laxative] 8.6-50 mg tablet 1 tab-cap PO BID sertraline 25 mg tablet 25 mg PO DAILY tamsulosin 0.4 mg capsule 0.4 mg PO DAILY tiotropium bromide 18 mcg capsule, w/inhalation device 1 cap inhalation DAILY Rx Instructions: puncture 1 cap using device; one dose = 2 inhalations Trelegy Ellipta 200-62.5-25 mcg blister with device 1 inh inhalation DAILY nicotine [Nicoderm CQ] 14 mg/24 hr patch 24 hour 1 patch transdermal DAILY nitroglycerin 0.4 mg tablet, sublingual 0.4 mg sublingual Q5-15M PRN Rx Instructions: do not exceed 3 doses per episode acetaminophen 325 mg capsule 650 mg PO QID PRN quetiapine 25 mg tablet 25 mg PO DAILY amlodipine 5 mg tablet 5 mg PO DAILY apixaban 2.5 mg tablet 2.5 mg PO BID cefuroxime axetil 500 mg tablet 500 mg PO BID ferrous sulfate [FeroSul] 325 mg (65 mg iron) tablet 325 mg PO DAILY sevelamer HCl 800 mg tablet 2,400 mg PO TID Rx Instructions: must administer with a meal/food Spiriva Respimat 2.5 mcg/actuation mist 2 inh inhalation DAILY budesonide-formoterol [Breyna] 160-4.5 mcg/actuation HFA aerosol inhaler 2 inh inhalation BID HPI General Date/Time Provider Initiated Documentation: 03/01/24 12:28 . HPI Narrative: 83 year-old male presents to ED today by EMS with a chief complaint of altered mentation per staff [facility] with onset last night or noted on awakening this morning. Patient is normally talkative, but today is only nodding yes and no, is able to follow commands and squeeze hand- able to move all extremities. Quality described as unable to qualify, no radiation to tachycardia, profound lethargy, vomitus, severe peripheral edema. Severity is described as unable to quantify. Palliating factors include nothing specific. Provoking factors include nothing specific. Events leading up to the incident/Associated Symptoms: There is Covid-19 at the facility recently. Patient is anticoagulated on apixaban. Related Data Home Medications ?Medication ?Instructions ?Recorded ?Confirmed albuterol sulfate 90 mcg/actuation 2 inh inhalation Q4H PRN 05/20/23 03/01/24 aerosol inhaler (Proventil HFA) allopurinol 100 mg tablet 100 mg PO DAILY 05/20/23 03/01/24 aspirin 81 mg tablet,delayed 81 mg PO DAILY 05/20/23 03/01/24 release (Adult Low Dose Aspirin) atorvastatin 40 mg tablet 40 mg PO DAILY 05/20/23 03/01/24 bisacodyl 10 mg rectal suppository 10 mg AR ONCE PRN 05/20/23 03/01/24 (Dulcolax (bisacodyl)) calcitriol 0.5 mcg PO Q OTHER DAY 05/20/23 03/01/24 calcium carbonate 500 mg PO QID 10/23/23 08/04/24 clopidogrel 75 mg tablet 75 mg PO DAILY 05/20/23 03/01/24 finasteride 5 mg tablet 5 mg PO DAILY 05/20/23 03/01/24 fluticasone fur. 200 mcg-umeclid 1 inh inhalation DAILY 05/20/23 03/01/24 62.5 mcg-vilant 25 mcg inhalat.powder (Trelegy Ellipta) ipratropium 0.5 mg-albuterol 3 mg 3 ml inhalation Q4H PRN 05/20/23 03/01/24 (2.5 mg base)/3 mL nebulization soln metoprolol tartrate 25 mg tablet 25 mg PO BID 05/20/23 03/01/24 ondansetron 4 mg disintegrating 4 mg PO BID-TID PRN 05/20/23 03/01/24 tablet pantoprazole 40 mg tablet,delayed 40 mg PO DAILY 05/20/23 03/01/24 release (Protonix) sennosides 8.6 mg-docusate sodium 1 tab-cap PO BID 05/20/23 03/01/24 50 mg tablet (2-in-1 Laxative) sertraline 25 mg tablet 25 mg PO DAILY 05/20/23 03/01/24 sevelamer carbonate 2.4 gram oral 2.4 g PO TID 05/20/23 03/01/24 powder packet (Renvela) tamsulosin 0.4 mg capsule 0.4 mg PO DAILY 05/20/23 03/01/24 tiotropium bromide 18 mcg capsule 1 cap inhalation DAILY 05/20/23 03/01/24 with inhalation device nicotine 14 mg/24 hr daily 1 patch transdermal DAILY 06/17/23 03/01/24 transdermal patch (Nicoderm CQ) nitroglycerin 0.4 mg sublingual 0.4 mg sublingual Q5-15M PRN 06/17/23 03/01/24 tablet acetaminophen 325 mg capsule 650 mg PO QID PRN 09/19/23 03/01/24 quetiapine 25 mg tablet 25 mg PO DAILY 09/19/23 03/01/24 amlodipine 5 mg tablet 5 mg PO DAILY 03/01/24 03/01/24 apixaban 2.5 mg tablet 2.5 mg PO BID 03/01/24 03/01/24 budesonide-formoterol HFA 160 2 inh inhalation BID 03/01/24 03/01/24 mcg-4.5 mcg/actuation aerosol inhaler (Breyna) cefuroxime axetil 500 mg tablet 500 mg PO BID 03/01/24 03/01/24 ferrous sulfate 325 mg (65 mg 325 mg PO DAILY 03/01/24 03/01/24 iron) tablet (FeroSul) sevelamer HCl 800 mg tablet 2,400 mg PO TID 03/01/24 03/01/24 tiotropium bromide 2.5 2 inh inhalation DAILY 03/01/24 03/01/24 mcg/actuation mist for inhalation (Spiriva Respimat) Allergies Allergy/AdvReac Type Severity Reaction Status Date / Time heparin Allergy Unknown Other (See Unverified 02/03/24 08:44 Comment) General Stated Complaint: AMS/LOC ISIAH: 3 Review of Systems All systems reviewed & are unremarkable except as noted in HPI and below Exam Narrative Exam Narrative: GENERAL APPEARANCE: Well-nourished, non-toxic, awake and alert, atraumatic, no acute distress. SKIN: Warm, pink, dry, intact, without rashes/lesions/ulcerations. HEAD: Normocephalic, atraumatic, normal hair distribution for gender/age. EYES: Normal conjunctiva, no exudates on lids/lashes. ENT: Nares patent, no circumoral cyanosis, no facial swelling NECK: Supple, trachea midline, painless cervical ROM. LUNGS/CHEST: Lungs CTA bilaterally, non-labored respirations, normal A/P diameter, symmetrical expansion, no chest wall deformity HEART (CV/PV): Regular rate and rhythm without murmur, no peripheral edema, no JVD. ABDOMEN: Soft, non-distended, no guarding. MSK: Normal ROM, no swelling/deformity to bilateral UEs or LEs, moving all extremities without weakness, no cyanosis, spine midline without tenderness, normal curvature. NEURO: Mental Status AAOx4 - alert to person, place, time, events No facial droop, no forehead involvement. Motor: No focal weakness - strength 5/5 in bilateral UEs and LEs, proximal and distal, symmetric. Sensory: sensation intact to light touch globally. Gait normal: patient ambulated without ataxia into ED room. PSYCH: euthymic, cooperative, pleasant, appropriate speech Course Vital Signs Vital signs: Vital Signs Temperature 36.4 C L 03/01/24 12:21 Pulse 67 03/01/24 12:21 Blood Pressure 147/87 H 03/01/24 12:21 Pulse Oximetry 99 03/01/24 12:21 Temperature 36.4 C L 03/01/24 12:21 Temperature Source Oral 03/01/24 12:21 Pulse 67 03/01/24 12:21 Blood Pressure 147/87 H 03/01/24 12:21 Pulse Oximetry 99 03/01/24 12:21 Oxygen Delivery Method Nasal Cannula 03/01/24 12:21 Oxygen Flow Rate 4 03/01/24 12:21 Lab/Test Results Lab/Test Results: 03/01/24 12:55 Blood Blood Culture - Pending 03/01/24 12:30 Blood Blood Culture - Pending Medical Decision Making This dictation utilizes [id number] dictation software and may contain unedited grammatical errors. 83 year-old male presents to ED today by EMS with a chief complaint of altered mentation per staff at [facility] the [facility] with onset last night or noted on awakening this morning. Patient is normally talkative, but today is only nodding yes and no, is able to follow commands and squeeze hand- able to move all extremities. Quality described as unable to qualify, no radiation to tachycardia, profound lethargy, vomitus, severe peripheral edema. Severity is described as unable to quantify. Palliating factors include nothing specific. Provoking factors include nothing specific. Events leading up to the incident/Associated Symptoms: There is Covid-19 at the facility recently. Patients' medical history: COPD with smoking history, CHF, end-stage renal disease on dialysis, history of encephalopathy due to infection, history of pneumonia, hypertension. Family and social history: Normally talkative per rehab staff. Pertinent exam findings / vital signs include nonfocal alteration from baseline, nodding only yes or no, able to move all extremities with significant weakness 3+ out of 5, some accessory muscle use but protecting his airway, benign abdomen, rales at bases and lungs, afebrile. Differential / pathologies of concern include encephalopathy, respiratory failure, stroke less likely, CHF exacerbation, COPD exacerbation, pneumonia, sepsis. Diagnostic studies of: -CBC, CMP, VBG, CRP/ESR, troponin, BNP, lipase, lactate and procalcitonin, UA, COVID/flu/RSV PCR swab, blood cultures, x-ray chest, CT head without contrast, EKG -CBC shows no leukocytosis, known chronic anemia stable from last month -CMP shows SCr 5.6 without hyperkalemia -Lactate 0.9, procalcitonin mildly elevated 0.6 -VBG shows pH of 7.27 with elevated CO2 at 78 -Troponin negative -CRP mildly elevated, ESR within normal limits -BNP 30,800 -UA shows trace leuk esterase with 10-20 WBCs on micro -XR chest shows cardiomegaly and CHF exacerbation with likely bibasilar pneumonia -CT head without acute ischemic findings, bilateral mastoid fluid without erosions > will cover with CAP and UTI coverage for possible mastoiditis -EKG shows NSR @ 69bpm, normal axis & intervals, no ST-changes, no signs of severe electrolyte abnormality Interventions of: -IV ceftriaxone and azithromycin for empiric pneumonia coverage. -Initiated BiPAP for his pCO2, 12-5-30% FiO2 settings -Consulted with [facility] who accept the patient for ICU admission @ 1505 ED Course/Assessment/Plan: 83-year-old male presents with alteration from baseline from rehab facility across the street, has been being treated for cellulitis and pneumonia with some antibiotics outpatient, he is a dialysis patient, he was noted to have hypercapnic respiratory failure, pneuonia, CHF exacerbation- is on BiPAP, CT head negative for any sign of stroke, exam non-focal. Patient has no signs of overt sepsis. We cannot perform dialysis at this facility, needs transfer and his volume status and CHF needs critical care management. [facility] accepts for ICU admit by Dr. Rivera @ 1505, transfer upon bed assignment by medic level - on BiPAP. Findings not consistent with sepsis, stroke. Disposition of CHF Exacerbation, Pneumonia, Hypercapnic Respiratory Failure. Patient verbalized understanding of the plan and return to ED criteria and engaged in shared decision making. Medical Records Medical records reviewed: Yes I reviewed the patient's medical records. Imaging Data Radiologic Study: Attestation: I personally reviewed and interpreted this imaging study as follows: Imaging: CT Scan Radiologist's impression: Exam: CT Head Without Contrast Exam date and time: 03/01/2024 1:10 PM Age: 83 years old Clinical indication: Altered mental status/memory loss TECHNIQUE: Imaging protocol: Computed tomography of the head without contrast. COMPARISON: CT HEAD CERVICAL SPINE WO 10/05/2023 3:07 PM FINDINGS: Brain: No intracranial hemorrhage. There is global parenchymal volume loss. Periventricular white matter hypoattenuation is nonspecific but most likely due to small vessel disease. No evidence of acute territorial infarct or cerebral edema. No mass effect or midline shift. Right posterior frontal encephalomalacia. Cerebral ventricles: Prominent ventricles likely secondary to volume loss. Paranasal sinuses: Air-fluid level right maxillary antrum. Mastoid air cells: Bilateral mastoid fluid. Bones: Unremarkable. No acute fracture. Soft tissues: Unremarkable. IMPRESSION: 1. No acute intracranial findings. 2. Air-fluid level right maxillary antrum. 3. Bilateral mastoid fluid. Dictated and Authenticated by: Bayron Mary MD. EXAM: CT HEAD WO CLINICAL HISTORY: altered mentation, unknown. TECHNIQUE: Imaging Protocol: Axial computed tomography images with coronal and sagittal reformatted images were created and reviewed COMPARISON: CT CT HEAD CERVICAL SPINE WO from 10/05/2023 FINDINGS: Ventricles and Extra axial spaces: Normal in size and morphology for the patient's age. Hemorrhage: None. Cerebral parenchyma: No evidence of acute infarct or mass. Atrophy. Mild white matter changes of small vessel disease. old small area of encephalomalacia in the right posterior frontal lobe. Midline shift: None. 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 Calvarium: Normal. Visualized Paranasal sinuses:Mild mucous retention in the right sphenoid sinus. Mastoids: Clear. Soft Tissues: Unremarkable. ORBITS: Unremarkable. PITUITARY: Not enlarged. IMPRESSION: No acute intracranial process. Radiologic Study #2: Attestation: I personally reviewed and interpreted this imaging study as follows: Imaging: X-Ray Radiologist's impression: Exam: XR Chest Exam date and time: 03/01/2024 1:16 PM Age: 83 years old Clinical indication: Other: AMS TECHNIQUE: Imaging protocol: Radiologic exam of the chest. Views: 1 view. COMPARISON: XR PORTABLE CHEST AP 01/18/2024 10:11 PM FINDINGS: Lungs: Patchy bibasilar infiltrates, unchanged. Pleural spaces: Small bilateral pleural effusions, minimally increased in size. Heart/Mediastinum: Previous transcatheter aortic valve replacement. Bones/joints: Unremarkable. Other findings: Support lines unchanged. IMPRESSION: 1. Small bilateral pleural effusions, minimally increased in size. 2. Patchy bibasilar infiltrates, unchanged. Dictated and Authenticated by: Bayron Mary MD. EXAM: XR CHEST 1V IN DI DEPT CLINICAL HISTORY: shortness of breath TECHNIQUE: 2D digital imaging was performed. COMPARISON: CR XR PORTABLE CHEST AP from 09/19/2023 CR,XR XR PORTABLE CHEST AP from 01/18/2024 FINDINGS: The exam is limited by under penetration at the lung bases. LUNGS: Small bilateral pleural effusions. Bilateral pulmonary vascular prominence. Increased interstitial markings could indicate CHF. Posterior infiltrates not excluded. HEART: Enlarged. Partially obscured by the pleural effusion. TAVR. AORTA: Proximal aortic stent. Calcification. BONES: Unremarkable for age. Soft tissues: Central venous catheter unchanged in position. IMPRESSION: Cardiomegaly and CHF. Basilar pneumonia not excluded. Lab Data Lab results reviewed: Yes I reviewed the patient's lab results. Labs: 03/01/24 13:50 Urine - Reflex from Ua Urine Culture - Pending 03/01/24 14:26 Blood Blood Culture - Pending 03/01/24 12:55 Blood Blood Culture - Pending Laboratory Tests Range/Units 03/01/24 03/01/24 03/01/24 12:55 13:24 13:50 WBC (4.4-10.8) 10^3/uL 9.32 RBC (4.36-5.78) 10^6/uL 3.08 L Hgb (13.5-17.5) g/dL 9.4 L Hct (40.0-50.0) % 31.2 L MCV (80-95) fL 101 H MCH (27.0-33.0) pg 30.5 MCHC (32.0-36.0) % 30.1 L RDW (11.8-14.1) % 17.9 H Plt Count (130-400) 10^3/uL 119 L MPV (8.0-11.0) fL 11.7 H Immature Gran % % 1.4 Neutrophils % % 62.5 Lymphocytes % % 15.1 Monocytes % % 6.2 Eosinophils % % 13.9 Basophils % % 0.9 Nucleated RBC % (0.0-0.3) % 0.0 Absolute Neutrophils (1.2-6.7) 10^3/uL 5.82 Absolute Lymphocytes (1.2-3.4) 10^3/uL 1.41 Absolute Monocytes (0.1-0.8) 10^3/uL 0.58 Absolute Eosinophils (0.0-0.7) 10^3/uL 1.30 H Absolute Basophils (0.0-0.2) 10^3/uL 0.08 ESR (0-20) mm/hr 12 VBG pH (7.31-7.41) 7.27 L VBG pCO2 (41-51) mmHg 78 H* VBG pO2 mmHg 29 VBG HCO3 (23-28) mmol/L 36 H VBG Total CO2 (24-29) mmol/L 35 H VBG O2 Saturation % 50 VBG Base Excess (-2-3) mmol/L 9 H VBG Lactate (0.6-1.4) mmol/L 0.9 Sodium (136-145) mmol/L 138 Potassium (3.5-5.1) mmol/L 3.8 Chloride (98-107) mmol/L 98 Carbon Dioxide (21.0-32.0) mmol/L 34.4 H Anion Gap (3-11) mmol/L 5.6 BUN (7-18) mg/dL 37 H Creatinine (0.70-1.30) mg/dL 5.6 H* Est GFR (CKD-EPI 2020) (mL/min/1.73m2) 9.57 Glucose (74-106) mg/dL 97 Calcium (8.5-10.1) mg/dL 9.0 Magnesium (1.8-2.4) mg/dL 2.0 Total Bilirubin (0.2-1.0) mg/dL 0.65 AST (15-37) U/L 14 L ALT (16-63) U/L 13 L Alkaline Phosphatase (46-116) U/L 106 Troponin I (< or =60) ng/L < 50 C-Reactive Protein (<or=0.5) mg/dL 1.23 H NT-Pro-B Natriuret Pep (<300) pg/mL 32675 H Total Protein (6.4-8.2) g/dL 6.7 Albumin (3.4-5.0) g/dL 3.1 L Lipase (16-77) U/L 30 Procalcitonin ng/mL 0.6 Urine Color (Yellow) Red Urine Clarity (Clear) Cloudy Urine pH (5-8) 7.0 Ur Specific [place] (1.005-1.025) 1.015 Urine Protein (Neg-Trace) mg/dL >=300 H Urine Ketones (Negative) mg/dL Negative Urine Blood (Negative) Large H Urine Nitrite (Negative) Negative Urine Bilirubin (Negative) Small H Urine Urobilinogen (Up to 0.2) mg/dL 0.2 Ur Leukocyte Esterase (Negative) Trace H Urine RBC (0-2) HPF >50 H Urine WBC (0-5) HPF 10-20 H Ur Epithelial Cells (Negative) HPF Negative Urine Crystals (Negative) HPF Negative Urine Bacteria (Negative) HPF Rare Urine Casts (Negative) LPF Negative Urine Mucus (Negative) Trace Ur Culture Indicated? Yes Urine Glucose (Negative) mg/dL Negative COVID-19 Source Nasopharynx SARS-CoV-2 (PCR) (Negative) Negative Influenza Type A (PCR) (Negative) Negative Influenza Type B (PCR) (Negative) Negative RSV (PCR) (Negative) Negative Quality:SDOH Health Related Social Needs: No Data to Display PFSH All Active Problems (Updated 03/01/24 @ 15:13 by MICHELLE Hill) Hypercapnic respiratory failure (Acute) CHF exacerbation (Acute) Pneumonia (Acute) Left arm swelling (Acute) Cellulitis of arm, left (Acute) COVID-19 (Acute) Social History Smoking/Tobacco Use Status: Current-Occasional Smoking risk assessment performed?: Yes Alcohol Intake: never Drug use: Never Substance use type: does not use Housing: residential Do you feel safe at home: Yes Do you feel safe in your relationship?: Yes Additional Social history: resident at [facility] Sign Out Sign Out Data: Sign Out Comment: Patient awaiting transfer to [facility]; accepted ICU- PNA, CHF, Hypercap Resp Failure- received ceftriaxone & azith, on BiPAP 12-5-30% FiO2. No acute decompsations in ED. Last updated by Yevgeniy Vargas PA at 03/01/24 15:15
[2024-03-01 13:09] LABS: Lactate 0.9 mmol/L (0.6-1.4)
[2024-03-01 13:10] LABS: Abs Immature Grans 0.13 10^3/uL (0.0-0.06); Absolute Basophil Count 0.08 10^3/uL (0.0-0.2); Absolute Lymphocyte Count 1.41 10^3/uL (1.2-3.4); Absolute Monocyte Count 0.58 10^3/uL (0.1-0.8); Absolute Neutrophil Count 5.82 10^3/uL (1.2-6.7); Basophils % 0.9 %; Eosinophils % 13.9 %; HCT 31.2 % (40.0-50.0); HGB 9.4 g/dL (13.5-17.5); Immature Grans % 1.4 %; Lymphocytes % 15.1 %; MCH 30.5 pg (27.0-33.0); MCHC 30.1 % (32.0-36.0); MCV 101 fL (80-95); MPV 11.7 fL (8.0-11.0); Monocytes % 6.2 %; Neutrophils % 62.5 %; Platelet Count 119 10^3/uL (130-400); RBC 3.08 10^6/uL (4.36-5.78); RDW 17.9 % (11.8-14.1); RDW-SD 66.6 fL; WBC 9.32 10^3/uL (4.4-10.8)
[2024-03-01 13:12] LABS: ESR 12 mm/hr (0-20)
--- NOTE | 2024-03-01 13:22 | DI.VRAD_ITS ---
PROCEDURE INFORMATION: Exam: CT Head Without Contrast Exam date and time: 03/01/2024 1:10 PM Age: 83 years old Clinical indication: Altered mental status/memory loss TECHNIQUE: Imaging protocol: Computed tomography of the head without contrast. COMPARISON: CT HEAD CERVICAL SPINE WO 10/05/2023 3:07 PM FINDINGS: Brain: No intracranial hemorrhage. There is global parenchymal volume loss. Periventricular white matter hypoattenuation is nonspecific but most likely due to small vessel disease. No evidence of acute territorial infarct or cerebral edema. No mass effect or midline shift. Right posterior frontal encephalomalacia. Cerebral ventricles: Prominent ventricles likely secondary to volume loss. Paranasal sinuses: Air-fluid level right maxillary antrum. Mastoid air cells: Bilateral mastoid fluid. Bones: Unremarkable. No acute fracture. Soft tissues: Unremarkable. IMPRESSION: 1. No acute intracranial findings. 2. Air-fluid level right maxillary antrum. 3. Bilateral mastoid fluid. Dictated and Authenticated by: Bayron Mary MD. Ordering:KARMA Vuong MD
[2024-03-01 13:31] LABS: ALT 13 U/L (16-63); AST 14 U/L (15-37); Albumin 3.1 g/dL (3.4-5.0); Alkaline Phosphatase 106 U/L (46-116); Anion Gap 5.6 mmol/L (3-11); BUN 37 mg/dL (7-18); Bilirubin, Total 0.65 mg/dL (0.2-1.0); C-Reactive Protein 1.23 mg/dL (<or=0.5); CO2 34.4 mmol/L (21.0-32.0); Chloride 98 mmol/L (98-107); Estimated GFR 9.57 (mL/min/1.73m2); Glucose 97 mg/dL (74-106); Lipase 30 U/L (16-77); Potassium 3.8 mmol/L (3.5-5.1); Sodium 138 mmol/L (136-145); Total Protein 6.7 g/dL (6.4-8.2); Troponin I < 50 ng/L (< or =60)
[2024-03-01 13:37] LABS: CREATININE 5.6 mg/dL (0.70-1.30)
[2024-03-01 13:40] LABS: Procalcitonin 0.6 ng/mL
--- NOTE | 2024-03-01 13:52 | DI.VRAD_ITS ---
PROCEDURE INFORMATION: Exam: XR Chest Exam date and time: 03/01/2024 1:16 PM Age: 83 years old Clinical indication: Other: AMS TECHNIQUE: Imaging protocol: Radiologic exam of the chest. Views: 1 view. COMPARISON: XR PORTABLE CHEST AP 01/18/2024 10:11 PM FINDINGS: Lungs: Patchy bibasilar infiltrates, unchanged. Pleural spaces: Small bilateral pleural effusions, minimally increased in size. Heart/Mediastinum: Previous transcatheter aortic valve replacement. Bones/joints: Unremarkable. Other findings: Support lines unchanged. IMPRESSION: 1. Small bilateral pleural effusions, minimally increased in size. 2. Patchy bibasilar infiltrates, unchanged. Dictated and Authenticated by: Bayron Mary MD. Ordering:KARMA Vuong MD
[2024-03-01 14:19] LABS: COVID-19 PCR Negative (Negative); Influenza A PCR Negative (Negative); Influenza B PCR Negative (Negative); RSV PCR Negative (Negative)
[2024-03-01 14:22] LABS: Source Nasopharynx
[2024-03-01 14:38] LABS: Bilirubin Small (Negative); Blood Large (Negative); Clarity Cloudy (Clear); Glucose Negative (Negative); Ketones Negative (Negative); Leukocyte Esterase Trace (Negative); Nitrite Negative (Negative); Specific Gravity 1.015 (1.005-1.025); Urobilinogen 0.2 mg/dL (Up to 0.2)
[2024-03-01 14:55] LABS: Bacteria Rare HPF (Negative); Casts Negative LPF (Negative); Crystals Negative HPF (Negative); Epithelial Cells Negative HPF (Negative); Mucus Trace (Negative); RBC >50 HPF (0-2)
[2024-03-01 14:56] LABS: C & S Indicated? Yes
[2024-03-01 15:05] LABS: Ammonia < 10 umol/L (11-32)
[2024-03-01] MEDS: cefTRIAXone 1 GM/50 ML BAG IVPB (15:49)
== END 2024-03-01 16:27 | disposition short-term general hospital (02) ==
PROVIDERS: Emergency Provider Physician Assistant; PCP Family Medicine
DX: I51.7 Cardiomegaly (principal); J96.02 Acute respiratory failure with hypercapnia; J44.9 Chronic obstructive pulmonary disease, unspecified; I12.0 Hypertensive chronic kidney disease with stage 5 chronic kidney disease or end stage renal disease; N18.6 End stage renal disease; J18.9 Pneumonia, unspecified organism; F17.210 Nicotine dependence, cigarettes, uncomplicated; Z79.82 Long term (current) use of aspirin; Z79.01 Long term (current) use of anticoagulants; Z79.02 Long term (current) use of antithrombotics/antiplatelets; Z79.899 Other long term (current) drug therapy
CPT/HCPCS: 80053; 82805; 83690; 84145; 85652; 87040; 87637; 93005; 96374; 99285; 70450; 71045; 81003; 81015; 82140; 83605; 83735; 83880; 84484; 85025; 86140; 87086; 93010; J0696